=== PATIENT | female | born 1985 | race Two or more races ===

== ENCOUNTER 2024-10-12 10:49 | Outpatient (REF) | payer MEDICAID, SELFPAY ==
--- OUTSIDE RECORDS SUMMARY | 2024-10-12 11:41 | XMS_ITS | Clinical Summary ---
Author Organization [employer] Address [address] [address] [facility] [place] [address] Care Team Providers Care Calcine Furnace Tender Name Role Phone Latricia Gonzales MD Primary Care Provider [phone] Allergies No known active allergies Medications amoxicillin (Amoxil) 875 MG tablet Take 1 tablet (875 mg) by mouth 2 times daily for 7 days. 14 tablet 10/12/2024 5 Active Active Problems No known active problems Encounters Date Type Department Care Team Description 10/12/2024 9:45 AM EDT Office Visit [facility] [address] [place] [phone] Latricia Gonzales MD Other fatigue (Primary Dx) 10/12/2024 Travel 10/08/[address] [facility] [address] [place] [phone] Latricia Gonzales MD chart prep 09/30/[address] [facility] [address] [place] [phone] Latricia Gonzales MD Pre-visit Planning (SDOH screening negative and tobacco screening negative) from Last 3 Months Social History Tobacco Use Types Packs/Day Years Used Date Smoking Tobacco: Never Smokeless Tobacco: Never Tobacco Cessation:Counseling Given: Not Answered Alcohol Use Standard Drinks/Week Comments Never 0 (1 standard drink = 0.6 oz pur e alcohol) Housing Stability Answer Date Recorded What is your housing situation today? I have kory licona 09/30/[address] you li ve. Do you have problems with any of the following? None of the above 09/30/2024 Food Insecurity Answer Date Recorded Within the past 12 months, y ou worried that your food would run out before you got money to buy more: Never True 09/30/2024 Within the past 12 months,th e food you bought just didn't last and you didn't have enough money to get more: Never True Transportation Answer Date Recorded In the past 12 months, has l ack of transportation kept you from medical appts, meetings, work or from getting things needed for daily living? No 09/30/2024 Utilities Answer Date Recorded In the past 12 months, has t he electric, gas, oil or water [employer] threatened to shut off services in your home? No 09/30/2024 Internet Access Answer Date Recorded Internet Access Q1 Yes 09/30/2024 Internet Access Q2 Not on file 09/30/2024 Comments No Intention Date Recorded No desire to become (finding) 0 10/12/2024 Sex and Gender Information Value Date Recorded Sex Assigned at Female 12/30/2023 9:44 AM EDT Legal Sex Female 9:42 AM EDT Gender Identity Female 12/30/2023 9:44 AM EDT Sexual Orientation Straight 12/30/2023 9: 44 AM EDT Last Filed Vital Signs Vital Sign Reading Time Taken Comments Blood Pressure 118/74 10/12/2024 10:09 AM EDT Pulse 72 10/12/2024 10:09 AM EDT Temperature 36.2 ??C (97.1 ??F) 10/12/2024 10:09 AM E DT Respiratory Rate 12 10/12/2024 10:09 AM EDT Oxygen Saturation - - Inhaled Oxygen Concentration - - Weight 52.4 kg (115 lb 8 oz) 10/12/2024 10:09 AM EDT Height 150 cm (4' 11.06 ) 10/12/2024 10:09 AM ED T Body Mass Index 23.28 10/12/2024 10:09 AM EDT Plan of Treatment Upcoming Encounters Date Type Department Care Team (Late st Contact Info) Description 01/11/2025 11:30 AM EDT Procedure Visit [facility] [address] [place] [address] Latricia Gonzales MD [address] [place] [address] Health Maintenance Due Date Last Done Comments Depression Screening 1984 HIV Screening 1984 Disability Screening 1984 Alcohol/Substance Use Screening 1996 Hepatitis C Screening 2002 DTaP/Tdap/Td Vaccines (1 - Tdap) 12/30/2003 Hepatitis B Vaccines (1 of 3 - 19+ 3-dose series) 12/30/2003 Pap Smear 2005 Cervical Cancer Screening 2014 HPV/Cotest 2014 COVID-19 Vaccine (1 - 2023-2 5 season) 2024 Influenza Vaccine (#1) 2024 SDOH Screening 09/30/2025 09/30/2024 Family Planning (PISQ) 10/12/2025 10/12/2024 Tobacco Screening 10/12/2025 10/12/2024 Zoster Vaccines (1 of 2) 2034 RSV Patients and Pa tients Aged 60 years or older (1 - 1-dose 75+ series) 12/30/2059 HIB Vaccines Aged Out No longer eligi ble based on patient's age to complete this topic HPV Vaccines Aged Out No longer eligi ble based on patient's age to complete this topic Hepatitis A Vaccines Aged Out No long er eligible based on patient's age to complete this topic IPV Vaccines Aged Out No longer eligi ble based on patient's age to complete this topic Meningococcal B Vaccine Aged Out No l onger eligible based on patient's age to complete this topic Meningococcal Vaccine Aged Out No mati nancy eligible based on patient's age to complete this topic Pneumococcal Vaccine: Pediat rics (0 to 5 Years) and At-Risk Patients (6 to 49) Years) Aged Out No longer elig ible based on patient's age to complete this topic RSV under 20 months Aged Out No longe r eligible based on patient's age to complete this topic Rotavirus Vaccines Aged Out No longer eligible based on patient's age to complete this topic Insurance [place] DENTAL - HSN FULL (MEDICAID) Care Teams Calcine Furnace Tender Relationship Specialty Start Date End Date Latricia Gonzales MD [address] [place] [phone] PCP - General Family Medicine 10/12/24
[2024-10-12 13:25] LABS: MANUAL DIFF FLAG NO
[2024-10-12 13:37] LABS: Basophils Percent Auto 0.6 % (0-2); Eosinophils Absolute Auto 0.1 X10*3/uL (0.0-0.4); Eosinophils Percent Auto 1.1 % (0-4); Hematocrit 26.6 % (37.0-47.0); Hemoglobin 7.4 g/dl (12.0-16.0); Imm Gran Abs Auto 0.02 X10*3/uL (0.00-0.03); Imm Gran Pct Auto 0.4 % (0.0-0.4); Mean Corpuscular HGB Conc 27.8 g/dl (31.0-35.0); Mean Corpuscular Hemoglobin 18.5 pg (27.0-33.0); Mean Corpuscular Volume 66.3 fL (80.0-98.0); Mean Platelet Volume 9.1 fL (9.4-12.3); Monocytes Absolute Auto 0.3 X10*3/uL (0.1-1.2); Monocytes Percent Auto 6.5 % (2-11); Neutrophils Absolute Auto 2.9 x10*3/uL (2.0-8.3); Neutrophils Percent Auto 54.4 % (45-73); Platelet Count 400 X10*3/uL (160-400); Red Blood Count 4.01 X10*6/uL (4.20-5.50); Red Cell Distribution Width 18.4 % (11.0-16.0); White Blood Count 5.3 X10*3/uL (4.8-10.8)
[2024-10-12 13:42] LABS: Estimated Average Glucose 120 mg/dL; Hemoglobin A1c % 5.8 % (<6.0)
[2024-10-12 13:48] LABS: Alanine Aminotransferase 18 U/L (0-31); Albumin Level 4.6 g/dL (3.5-5.0); Alkaline Phosphatase 90 U/L (39-117); Anion Gap 11 (12-20); Aspartate Amino Transferase 26 U/L (5-31); Bilirubin Total 0.6 mg/dL (0.0-1.0); Blood Urea Nitrogen 11 mg/dL (9-16); Calcium 9.1 mg/dL (8.4-10.2); Carbon Dioxide 24 mmol/L (22-29); Chloride 107 mmol/L (96-108); Estimated Glomerular Filt Rate > 60; Glucose Random 92 mg/dL (60-115); Potassium 4.1 mmol/L (3.3-5.1); Sodium 138 mmol/L (135-145)
[2024-10-12 14:11] LABS: TSH reflex Free T4 1.86 uIU/mL (0.32-4.0)
== END 2024-10-12 10:50 | disposition home or self-care (01) ==
LOC: HO.HHCL 10:49
PROVIDERS: Visit Provider General Practice
DX: R53.83 Other fatigue (principal)
CPT/HCPCS: 36415; 80053; 83036; 84443; 85025

== ENCOUNTER 2024-11-16 10:47 | Outpatient (REF) | payer MEDICAID, SELFPAY ==
--- OUTSIDE RECORDS SUMMARY | 2024-11-16 12:01 | XMS_ITS | Clinical Summary ---
Author Organization [employer] Address [address] [place] [address] Care Team Providers Care Logistics/Shipper Name Role Phone Latricia Gonzales MD Primary Care Provider [phone] Allergies No known active allergies Medications ferrous gluconate (Fergon) 324 (38 Fe) MG tabletIndication s:Iron deficiency anemia secondary to inadequate dietary iron intake Take 1 tablet (324 mg) by mouth with breakfast. 90 tablet 3 5 Active polyethylene glycol, PEG, 3350 (MiraLax) 17 GM/SCOOP powderIndication s:Iron deficiency anemia secondary to inadequate dietary iron intake Take 17 g by mouth Once per day. 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 10/12/2024 Results Follow-Up [facility] [address] [place], [place] [phone] Latricia Gonzales MD CBC auto differential, Comprehensive Metabolic Panel, TSH W/Reflex to FT4, Hemoglobin A1c 10/12/2024 Travel 10/08/2024 Telephone [facility] [address] [place], [place] [phone] Latricia Gonzales MD chart prep 09/30/2024 Patient Outreach [facility] [address] [place] [address] Latricia Gonzales MD Pre-visit Planning (SDOH screening negative and tobacco screening negative) from Last 3 Months Social History Tobacco Use Types Packs/Day Years Used Date Smoking Tobacco: Never Smokeless Tobacco: Never Tobacco Cessation:Counseling Given: Not Answered Alcohol Use Standard Drinks/Week Comments Never 0 (1 standard drink = 0.6 oz pur e alcohol) Alcohol Answer Date Recorded How often do you have a drink containing alcohol ? 0 10/12/2024 How many drinks containing a lcohol do you have on a typical day when you are drinking? 0 10/12/2024 How often do you have six or more drinks on one occasion? 0 10/12/2024 Depression Answer Date Recorded Patient Health Questionnaire-9 Score 2 10/12/2024 Patient Health Questionnaire-9 Score 2 10/12/2024 Last PHQ-9: Questionnaire Data Not on file 0 10/12/2024 Housing Stability Answer Date Recorded What is [...] t he electric, gas, oil or water company threatened to shut off services in your home? No 09/30/2024 Depression Answer Date Recorded Patient Health Questionnaire-2 Score 0 10/12/2024 Internet Access Answer Date Recorded Internet Access [...] 72 10/12/2024 10:09 AM EDT Temperature 36.2 C (97.1 F) 10/12/2024 10:09 AM EDT Respiratory Rate 12 10/12/2024 10:09 AM EDT Oxygen Saturation - - Inhaled Oxygen Concentration - - Weight 52.4 kg (115 lb 8 oz) 10/12/2024 10:09 AM EDT Height 150 cm (4' 11.06 ) 10/12/2024 10:09 AM ED T Body Mass Index 23.28 10/12/2024 10:09 AM EDT Plan of Treatment Upcoming Encounters Date Type Department Care Team (Late st Contact Info) Description 11/23/2024 9:30 AM EDT Office Visit [facility] [address] [place] [address] 01/11/2025 11:30 AM EDT Procedure Visit [facility] [address] [place] [address] Latricia Gonzales MD [address] [place] [address] Health Maintenance Due Date Last Done Comments Dental Oral Exam 1984 Dental Prophylaxis 1984 Dental X-Ray: Bitewings 1984 Dental X-Ray: Full Mouth 1984 HIV Screening 1984 Disability Screening 1984 Hepatitis C Screening 2002 DTaP/Tdap/Td Vaccines (1 - Tdap) 12/30/2003 Hepatitis B Vaccines (1 of 3 - 19+ 3-dose series) 12/30/2003 Pap Smear 2005 Cervical Cancer Screening 2014 HPV/Cotest 2014 COVID-19 Vaccine ( - 2023-2 5 season) 2024 Influenza Vaccine (#1) 2025 SDOH Screening 09/30/2025 09/30/2024 Alcohol/Substance Use Screening 10/12/2025 10/12/2024 Depression Screening 10/12/2025 10/12/2024, 10/12/2024 Diabetes: Hemoglobin A1C 10/12/2025 10/12/2024 Family Planning (PISQ) 10/12/2025 10/12/2024 Tobacco Screening 10/12/2025 10/12/2024 Zoster Vaccines (1 of 2) 2034 RSV Patients and Patients Aged 60 years or older (1 - [...] age to complete this topic Pneumococcal Vaccine: Pediatrics (0 to 5 Years) and At-Risk Patients (6 to 49) Years Aged Out No longer eligible b ased on patient's age to complete this topic RSV under 20 months Aged Out No longe r eligible based on patient's age to complete this topic Rotavirus Vaccines Aged Out No longer eligible based on patient's age to complete this topic Procedures Procedure Name Priority Date/Time Associated Diagnosis Comments HEMOGLOBIN A1C Routine 10/12/2024 10:54 AM EDT Other fatigue TSH W/REFLEX TO FT4 Routine 10/12/2024 1 0:54 AM EDT Other fatigue COMPREHENSIVE METABOLIC PANEL Routine 10/12/2024 10:54 AM EDT Other fatigue CBC WITH AUTO DIFFERENTIAL Routine 10/12/2024 10:54 AM EDT Other fatigue from Last 3 Months Results * TSH W/Reflex to FT4 (10/12/2024 10:54 AM EDT) TSH reflex Free T4 1.86 0.32 - 4.0 uIU/mL [facility] Blood Venous blood specimen / Unknown 10/12/2024 10:54 AM EDT 10/12/2024 1:22 PM EDT us Latricia Gonzales MD LAB BLOOD ORDERABLES Final Res ult [facility] [address] [place] [phone] * (ABNORMAL) CBC auto differential (10/12/2024 10:54 AM EDT) Pathologist [facility] White Blood Count 5.3 4.8 - 10.8 X10*3/uL [facility] Red Blood Count 4.01(L) 4.20 - 5.50 X10*6/uL [facility] Hemoglobin 7.4(L) 12.0 - 16.0 g/dl [facility] Hematocrit 26.6(L) 37.0 - 47.0 % [facility] Mean Corpuscular Volume 66.3(L) 80.0 - 98.0 fL [facility] Mean Corpuscular Hemoglobin 18.5(L) 27.0 - 33.0 pg [facility] Mean Corpuscular HGB Conc 27.8(L) 31.0 - 35.0 g/dl [facility] Red Cell Distribution Width 18.4(H) 11.0 - 16.0 % [facility] Platelet Count 400 160 - 400 X10*3/uL [facility] Mean Platelet Volume 9.1(L) 9.4 - 12.3 fL [facility] Neutrophils Percent Auto 54.4 45 - 73 % [facility] Imm Gran Pct Auto 0.4 0.0 - 0.4 % [facility] Lymphocytes Percent Auto 37.0 20 - 40 % [facility] Monocytes Percent Auto 6.5 2 - 11 % [facility] Eosinophils Percent Auto 1.1 0 - 4 % [facility] Basophils Percent Auto 0.6 0 - 2 % [facility] NRBC Pct Auto 0.0 0.0 - 0.2 /100WBC [facility] Neutrophils Absolute Auto 2.9 2.0 - 8.3 x10*3/uL [facility] Imm Gran Abs Auto 0.02 0.00 - 0.03 X10*3/uL [facility] Lymphocytes Absolute Auto 2.0 1.2 - 4.9 X10*3/uL [facility] Monocytes Absolute Auto 0.3 0.1 - 1.2 X10*3/uL [facility] Eosinophils Absolute Auto 0.1 0.0 - 0.4 X10*3/uL [facility] Basophils Absolute Auto 0.0 0.0 - 0.2 X10*3/uL [facility] NRBC Abs Auto 0.000 0.0 - 0.012 X10*3/uL [facility] Blood Venous blood specimen / Unknown 10/12/2024 10:54 AM EDT 10/12/2024 1:22 PM EDT us Latricia Gonzales MD LAB BLOOD ORDERABLES Final Res ult [facility] [address] [place] [phone] * Hemoglobin A1c (10/12/2024 10:54 AM EDT) Hemoglobin A1c 5.8 <6.0 % [facility] Comment:Hemoglobin A1C Refer ence Range Adults: 4.8 - 6.0 % Non diabetic: < 6.0 % Goal: < 7.0 %Additional Action Suggested: > 8.0 %Note: Hemoglobin A1c results are invalid for patients with abnormal amounts of HbF. Blood transfusions may impact the HbA1c concentration in the patient sample. Estimated Average Glucose 120 mg/dL [facility] Comment:eAG = Estimated ave rage glucose which is %A1C expressed asaverage glucose, using the formula of the [id number] Glucose study (ADAG), Diabetes Care, Vol.31,#8,Dec. 2007 Blood Venous blood specimen / Unknown 10/12/2024 10:54 AM EDT 10/12/2024 1:22 PM EDT us Latricia Gonzales MD LAB BLOOD ORDERABLES Final Res ult [facility] [address] [place], [place] [phone] * (ABNORMAL) Comprehensive Metabolic Panel (10/12/2024 10:54 AM EDT) Sodium 138 135 - 145 mmol/L [facility] Potassium 4.1 3.3 - 5.1 mmol/L [facility] Chloride 107 96 - 108 mmol/L [facility] Carbon Dioxide 24 22 - 29 mmol/L [facility] Anion Gap 11(L) 12 - 20 [facility] Urea Nitrogen (BUN) 11 9 - 16 mg/dL [facility] Creatinine, Serum 0.49(L) 0.5 - 1.4 mg/dL [facility] Estimated Glomerular Filt Rate >60 [facility] Comment:Chronic Kidney Disea se: Estimated GFR < 60 mL/min/1.20p0[place] Kidney Disease: Estimated GFR < 15 mL/min/1.73m2 Glucose 92 60 - 115 mg/dL [facility] Calcium 9.1 8.4 - 10.2 mg/dL [facility] Bilirubin, Total 0.6 0.0 - 1.0 mg/dL [facility] Aspartate Amino Transferase 26 5 - 31 U/L [facility] Alanine Aminotransferase 18 0 - 31 U/L [facility] Total Protein 8.0 6.5 - 8.0 g/dL [facility] Albumin Level 4.6 3.5 - 5.0 g/dL [facility] Alkaline Phosphatase 90 39 - 117 U/L [facility] Blood Venous blood specimen / Unknown 10/12/2024 10:54 AM EDT 10/12/2024 1:22 PM EDT us Latricia Gonzales MD LAB BLOOD ORDERABLES Final Res ult [facility] [address] [place] [phone] [phone] from Last 3 Months Insurance [facility]SN FULL [facility] - HSN FULL (MEDICAID) DENTAL-[place] ADULT Care Teams Logistics/Shipper Relationship Specialty Start Date End Date Latricia Gonzales MD [address] [place] [phone] PCP - General Family Medicine 10/12/24
[2024-11-16 13:03] LABS: MANUAL DIFF FLAG NO
[2024-11-16 13:12] LABS: Hematocrit 25.6 % (37.0-47.0); Hemoglobin 7.1 g/dl (12.0-16.0); Imm Gran Abs Auto 0.01 X10*3/uL (0.00-0.03); Imm Gran Pct Auto 0.2 % (0.0-0.4); Lymphocytes Absolute Auto 2.2 X10*3/uL (1.2-4.9); Mean Corpuscular HGB Conc 27.7 g/dl (31.0-35.0); Mean Corpuscular Hemoglobin 19.0 pg (27.0-33.0); Mean Corpuscular Volume 68.4 fL (80.0-98.0); NRBC Abs Auto 0.000 X10*3/uL (0.0-0.012); NRBC Pct Auto 0.0 /100WBC (0.0-0.2); Platelet Count 467 X10*3/uL (160-400); Red Blood Count 3.74 X10*6/uL (4.20-5.50); White Blood Count 5.0 X10*3/uL (4.8-10.8)
== END 2024-11-16 10:48 | disposition home or self-care (01) ==
LOC: HO.HHCL 10:47
PROVIDERS: PCP General Practice; Visit Provider General Practice
DX: D50.8 Other iron deficiency anemias (principal)
CPT/HCPCS: 36415; 85025

== ENCOUNTER 2024-12-24 08:12 | Outpatient (REF) | payer MEDICAID, SELFPAY ==
--- OUTSIDE RECORDS SUMMARY | 2024-12-24 08:22 | XMS_ITS | Encounter Summary ---
Author Organization [employer] Address [address] [place] [address] Care Team Providers Care Assistant Women'S Soccer Coach Name Role Phone Latricia Gonzales MD Primary Care Provider [phone] Encounter Details Date Type Department Care Team ([facility] st Contact Info) Description 12/15/2024 Orders Only [facility] [address] [place], [place] [phone] Latricia Gonzales MD [address] [place], [place] [phone] Iron deficiency anemia secondary to inadequate dietary iron intake (Primary Dx) Social History Tobacco Use Types Packs/Day Years Used Date Smoking Tobacco: Never Smokeless Tobacco: Never Alcohol Use Standard Drinks/Week Comments Never 0 [...] Q2 Not on file 09/30/2024 Comments No Sex and Gender Information Value Date Recorded Sex Assigned at Female 12/30/2023 9:44 AM EDT Legal Sex Female 9:42 AM EDT Gender Identity Female 12/30/2023 9:44 AM EDT Sexual Orientation Straight 12/30/2023 9: 44 AM EDT documented as of this encounter Plan of Treatment Upcoming Encounters Date Type Department Care Team (Late st Contact Info) Description 01/11/2025 11:30 AM EDT Procedure Visit [facility] [address] [place] [phone] Latricia Gonzales MD [address] [place] [phone] Scheduled Orders Name Type Priority Associated Diagnoses Orde r Schedule CBC auto differential Lab Routine Iron deficiency anemia secondary to inadequate dietary iron intake Expected: 12/15/2024 (Approximate), Expires: 12/15/2025 documented as of this encounter Visit Diagnoses Diagnosis Iron deficiency anemia secondary to inadequate dietary iron intake- Primary documented in this encounter Additional Health Concerns Assessment Noted Time PHQ-9 Depression Total Score: 2 10/13/19 2:23 PM EDT documented as of this encounter Care Teams Assistant Women'S Soccer Coach Relationship Specialty Start Date End Date Latricia Gonzales MD [address] [place] [phone] PCP - General Family Medicine 10/12/24 documented as of this encounter
[2024-12-24 11:43] LABS: MANUAL DIFF FLAG NO
[2024-12-24 11:52] LABS: Hematocrit 28.2 % (37.0-47.0); Hemoglobin 7.7 g/dl (12.0-16.0); Imm Gran Abs Auto 0.01 X10*3/uL (0.00-0.03); Imm Gran Pct Auto 0.2 % (0.0-0.4); Lymphocytes Absolute Auto 1.7 X10*3/uL (1.2-4.9); Mean Corpuscular HGB Conc 27.3 g/dl (31.0-35.0); Mean Corpuscular Hemoglobin 19.1 pg (27.0-33.0); Mean Corpuscular Volume 70.0 fL (80.0-98.0); NRBC Abs Auto 0.000 X10*3/uL (0.0-0.012); NRBC Pct Auto 0.0 /100WBC (0.0-0.2); Platelet Count 399 X10*3/uL (160-400); Red Blood Count 4.03 X10*6/uL (4.20-5.50); White Blood Count 5.3 X10*3/uL (4.8-10.8)
== END 2024-12-24 08:13 | disposition home or self-care (01) ==
LOC: HO.HHCL 08:12
PROVIDERS: PCP General Practice; Visit Provider General Practice
DX: D50.8 Other iron deficiency anemias (principal)
CPT/HCPCS: 36415; 85025

== ENCOUNTER 2025-01-11 10:27 | Outpatient (REF) | payer MEDICAID, SELFPAY ==
--- NOTE | ~2025-01-11 | XR_ITS ---
EXAMINATION: XR SHOULDER, RIGHT CLINICAL INFORMATION: Right soulder pain with overhead motion at joint COMPARISON: None available. TECHNIQUE: AP external rotation, Grashey, scapular Y, and axillary views of the right shoulder. FINDINGS: The bones and soft tissues are normal. No fracture. Glenohumeral and acromioclavicular alignment is anatomic with normal joint space. No abnormal soft tissue calcifications. XR/XR shoulder RT min 2V IMPRESSION: Unremarkable right shoulder. Electronically signed by: Rian Barnett MD 01/11/2025 10:55 AM EDT
--- OUTSIDE RECORDS SUMMARY | 2025-01-11 11:12 | XMS_ITS | Clinical Summary ---
Author Organization [employer] Address [address] [place] [address] Care Team Providers Care Tax Services Manager Name Role Phone Latricia Gonzales MD Primary Care Provider [phone] Allergies Active Allergy Reactions Criticality Noted Date Comments Cephalexin 11/23/2024 Medications polyethylene glycol, PEG, 3350 (MiraLax) 17 GM/SCOOP powderIndicat ions:Iron deficiency anemia secondary to inadequate dietary iron intake Take 17 g by mouth Once per day. Take if become constipated from iron 527 g 2 10/13/19 25 026 Active hydrocortison e 1 % cream Apply topically 2 times daily. 56 g 01/12/20 25 Active ferrous gluconate (Fergon) 324 (38 Fe) MG tabletIndicat ions:Iron deficiency anemia secondary to inadequate dietary iron intake Take 1 tablet (324 mg) by mouth with breakfast. 90 tablet 3 01/12/20 25 Active ferrous gluconate (Fergon) 324 (38 Fe) MG tabletIndicat ions:Iron deficiency anemia secondary to inadequate dietary iron intake Take 1 tablet (324 mg) by mouth with breakfast. 90 tablet 3 10/13/19 25 025 Discontinued(Re order (will not trigger notification to Pharmacy)) Active Problems Problem Noted Date Diagnosed Date Acute pain of right shoulder 01/11/2025 Screening for cervical cancer 01/11/2025 Iron deficiency anemia 10/12/2024 Encounters Date Type Department Care Team Description 01/11/2025 11:30 AM EDT Procedure Visit [facility] [address] [place], [place] [phone] Latricia Gonzales MD Screening for cervical cancer (Primary Dx); Acute pain of right shoulder; Iron deficiency anemia secondary to inadequate dietary iron intake 01/11/2025 Travel 01/10/[address] [address] Latricia Gonzales MD chart prep 12/26/2024 Results Follow-Up [facility] [address] [place] [phone] Latricia Gonzales MD CBC auto differential 12/15/2024 Orders Only [address] [address] Latricia Gonzales MD Iron deficiency anemia secondary to inadequate dietary iron intake (Primary Dx) 12/14/2024 2:30 PM EDT Office Visit [facility] [address] [place] [address] Wilbur Karen Missing teeth, acquired (Primary Dx) 12/07/2024 Telephone [facility] [address] [place] [phone] Yen Bu Student case 12/03/2024 1:00 PM EDT Office Visit [facility] [address] [place] [address] Wilbur Karen Missing teeth, acquired (Primary Dx) 11/26/2024 10:30 AM EDT Office Visit [facility] [address] [place] [address] Wilbur Karen Excessive attrition of teeth (Primary Dx) 11/25/2024 Travel 11/23/2024 9:30 AM EDT Office Visit [facility] [address] [place] [address] Wilbur Karen Excessive attrition of teeth (Primary Dx); Dental caries; Dental plaque; Gingival bleeding; Missing teeth, acquired; Dental calculus 10/12/2024 9:45 AM EDT Office Visit [address] [address] Latricia Gonzales MD Other fatigue (Primary Dx); Iron deficiency anemia secondary to inadequate dietary iron intake; 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 10/12/2024 Results Follow-Up [address] [place] [address] Latricia Gonzales MD CBC auto differential, Comprehensive Metabolic Panel, TSH W/Reflex to FT4, Additional followed-up results: 2 10/12/2024 Travel from Last 3 Months Social History Tobacco [...] Answer Date Recorded Patient Health Questionnaire-9 Score 5 01/11/2025 Patient Health Questionnaire-9 Score 5 01/11/2025 Last PHQ-9: Questionnaire Data Not on file 0 01/11/2025 Housing Stability Answer Date Recorded What is [...] Answer Date Recorded Patient Health Questionnaire-2 Score 2 01/11/2025 Internet Access Answer Date Recorded Internet Access Q1 Yes 09/30/2024 Internet Access Q2 Not on file 09/30/2024 Comments No Intention Date Recorded No desire to become (finding) 0 01/11/2025 Sex and Gender Information Value Date Recorded Sex Assigned at Female 12/30/2023 9:44 AM EDT Legal Sex Female 9:42 AM EDT Gender Identity Female 12/30/2023 9:44 AM EDT Sexual Orientation Straight 12/30/2023 9: 44 AM EDT Last Filed Vital Signs Vital Sign Reading Time Taken Comments Blood Pressure 100/60 01/11/2025 9:53 AM EDT Pulse 100 01/11/2025 9:53 AM EDT Temperature 36.2 C (97.1 F) 01/11/2025 9:53 AM EDT Respiratory Rate 20 01/11/2025 9:53 AM EDT Oxygen Saturation - - Inhaled Oxygen Concentration - - Weight 52.5 kg (115 lb 12.8 oz) 01/11/2025 9:53 AM EDT Height 149.9 cm (4' 11 ) 01/11/2025 9:53 AM EDT Body Mass Index 23.39 01/11/2025 9:53 AM EDT Plan of Treatment Upcoming Encounters Date Type Department Care Team (Latest Contact Info) Description 01/11/2025 11:30 AM EDT Procedure Visit [facility] [address] [place] [address] Latricia Gonzales MD [address] [place] [address] Screening for cervical cancer (Primary Dx); Acute pain of right shoulder; Iron deficiency anemia secondary to inadequate dietary iron intake Health Maintenance Due Date Last Done Comments HIV Screening 1984 HPV Vaccines (1 - 3-dose series) 12/30/1999 Hepatitis C Screening 2002 DTaP/Tdap/Td Vaccines (1 - Tdap) 12/30/2003 Hepatitis B Vaccines (1 of 3 - 19+ 3-dose series) 12/30/2003 Pap Smear 2005 Cervical Cancer Screening 2014 HPV/Cotest 2014 COVID-19 Vaccine (1 - 2023-2 5 season) 2024 Mammogram 2024 Influenza Vaccine (#1) 2025 Dental Oral Exam 05/27/2025 11/23/2024 Dental Prophylaxis 05/27/2025 11/23/2024 SDOH Screening 09/30/2025 09/30/2024 Alcohol/Substance Use Screening 10/12/2025 10/12/2024 Diabetes: Hemoglobin A1C 10/12/2025 10/12/2024 Family Planning (PISQ) 10/12/2025 10/12/2024 Dental X-Ray: Bitewings 11/24/2025 11/23/2024 Depression Screening 01/11/2026 01/11/2025, 01/11/2025 Disability Screening 01/11/2026 01/11/2025 Tobacco Screening 01/11/2026 01/11/2025 Dental X-Ray: Full Mouth 11/25/2027 11/23/2024 Zoster Vaccines (1 of 2) 2034 RSV [...] Procedure Name Priority Date/Time Associated Diagnosis Comments XR SHOULDER 2+ VIEWS RIGHT Routine 01/11/2025 10:02 AM EDT Acute pain of right shoulder CBC WITH AUTO DIFFERENTIAL Routine 12/24/2024 8:20 AM EDT Iron deficiency anemia secondary to inadequate dietary iron intake CASE PRESENTATION, DETAILED AND EXTENSIVE TREATMENT PLANNING Routine 12/14/2024 2:30 PM EDT 5,12 MAXILLARY PARTIAL DENTURE - RESIN BASE (INCLUDING, RETENTIVE/CLASPING MATERIALS, RESTS, AND TEETH) Routine 12/14/2024 2:30 PM EDT Missing teeth, acquired CASE PRESENTATION, DETAILED AND EXTENSIVE TREATMENT PLANNING Routine 12/03/2024 1:00 PM EDT DENTURE IMPRESSION Routine 12/03/2024 1: 00 PM EDT CASE PRESENTATION, DETAILED AND EXTENSIVE TREATMENT PLANNING Routine 11/26/2024 10:30 AM EDT 13 D RESIN-BASED COMPOSITE - 1 SURF, POSTERIOR Routine 11/26/2024 10:30 AM EDT Excessive attrition of teeth 14 M RESIN-BASED COMPOSITE - 1 SURF, POSTERIOR Routine 11/26/2024 10:30 AM EDT CASE PRESENTATION, DETAILED AND EXTENSIVE TREATMENT PLANNING Routine 11/23/2024 9:30 AM EDT ORAL HYGIENE INSTRUCTIONS Routine 11/23/2024 9:30 AM EDT INTRAORAL - COMPLETE SERIES OF RADIOGRAPHIC IMAGES Routine 11/23/2024 9:30 AM EDT PROPHYLAXIS - ADULT Routine 11/23/2024 9 :30 AM EDT COMPREHENSIVE ORAL EVALUATION - NEW OR ESTABLISHED PATIENT Routine 11/23/2024 9:30 AM EDT Excessive attrition of teeth Dental caries Dental plaque Gingival bleeding Missing teeth, acquired Dental calculus 3 O COMPOSITE FILLING Routine 11/23/2024 12:00 AM EDT 2 O COMPOSITE FILLING Routine 11/23/2024 12:00 AM EDT 15 O COMPOSITE FILLING Routine 12:00 AM EDT 18 O COMPOSITE FILLING Routine 12:00 AM EDT 19 O COMPOSITE FILLING Routine 12:00 AM EDT 31 O COMPOSITE FILLING Routine 12:00 AM EDT 30 O AMALGAM FILLING Routine 11/23/2024 12:00 AM EDT CBC WITH AUTO DIFFERENTIAL Routine 11/16/2024 11:02 AM EDT Iron deficiency anemia secondary to inadequate dietary iron intake HEMOGLOBIN A1C Routine 10/12/2024 10:54 AM EDT Other fatigue TSH W/REFLEX TO FT4 Routine 10/12/2024 1 0:54 AM EDT Other fatigue COMPREHENSIVE METABOLIC PANEL Routine 10/12/2024 10:54 AM EDT Other fatigue CBC WITH AUTO DIFFERENTIAL Routine 10/12/2024 10:54 AM EDT Other fatigue from Last 3 Months Results * XR Shoulder 2+ Views Right (01/11/2025 10:02 AM EDT) Anatomical Region Laterality Modality Upper Extremities, Shoulder Right Radi ographic Imaging 01/11/2025 10:0 2 AM EDT Narrative 01/11/2025 10:57 AM EDT [address] [address] XRay Report Signed Patient: Sapna Hickey MR#: [id number] : 1985 Acct:[id number] Age/Sex: 39 / F ADM Date: 01/11/25 Loc: HO.HHCX Attending Dr: Latricia Gonzales MD Ordering Physician: Latricia Gonzales Date of Service: 01/11/25 Procedure(s): XR shoulder RT min 2V Accession Number(s): [id number] cc: Latricia Gonzales EXAMINATION: XR SHOULDER, RIGHT CLINICAL INFORMATION: Right soulder pain with overhead motion at GH joint COMPARISON: None available. TECHNIQUE: AP external rotation, Grashey, scapular Y, and axillary views of the right shoulder. FINDINGS: The bones and soft tissues are normal. No fracture. Glenohumeral and acromioclavicular alignment is anatomic with normal joint space. No abnormal soft tissue calcifications. XR/XR shoulder RT min 2V IMPRESSION: Unremarkable right shoulder. Electronically signed by: Rian Barnett MD 01/11/2025 10:55 AM EDT Dictated By: Rian Barnett MD Signed By: <Electronically signed by Rian Barnett MD in OV> 01/11/25 1055 DD/ 1002 TD/TT: 01/11/25 1050 [employer] Supervisor: Procedure Note Donotuseinterpreter, Image - 01/11/[address] [address] XRay Report Signed Patient: Sapna HickeyMR#: [id number] : 1985Acct:[id number] Age/Sex: 39 / FADM Date: 01/11/25 Loc: HO.HHCX Attending Dr: Latricia Gonzales MD Ordering Physician: Latricia Gonzales Date of Service: 01/11/25 Procedure(s): XR shoulder RT min 2V Accession Number(s): [id number] cc: Latricia Gonzales EXAMINATION: XR SHOULDER, RIGHT CLINICAL INFORMATION: Right soulder pain with overhead motion at GH joint COMPARISON: None available. TECHNIQUE: AP external rotation, Grashey, scapular Y, and axillary views of the right shoulder. FINDINGS: The bones and soft tissues are normal. No fracture. Glenohumeral and acromioclavicular alignment is anatomic with normal joint space. No abnormal soft tissue calcifications. XR/XR shoulder RT min 2V IMPRESSION: Unremarkable right shoulder. Electronically signed by: Rian Barnett MD 01/11/2025 10:55 AM EDT Dictated By: Rian Barnett MD Signed By: <Electronically signed by Rian Barnett MD in OV> 01/11/25 1055 DD/ 1002 TD/TT: 01/11/25 [address] [employer] Supervisor: Latricia Gonzales MD IMG XR PROCEDURES Final Result * (ABNORMAL) CBC auto differential (12/24/2024 8:20 AM EDT) Only the most recent of3 resultswithin the time period is included. White Blood Count 5.3 4.8 - 10.8 X10*3/uL [facility] Red Blood Count 4.03(L) 4.20 - 5.50 X10*6/uL [facility] Hemoglobin 7.7(L) 12.0 - 16.0 g/dl [facility] Hematocrit 28.2(L) 37.0 - 47.0 % [facility] Mean Corpuscular Volume 70.0(L) 80.0 - 98.0 fL [facility] Mean Corpuscular Hemoglobin 19.1(L) 27.0 - 33.0 pg [facility] Mean Corpuscular HGB Conc 27.3(L) 31.0 - 35.0 g/dl [facility] Red Cell Distribution Width 19.3(H) 11.0 - 16.0 % [facility] Platelet Count 399 160 - 400 X10*3/uL [facility] Mean Platelet Volume 9.3(L) 9.4 - 12.3 fL [facility] Neutrophils Percent Auto 57.8 45 - 73 % [facility] Imm Gran Pct Auto 0.2 0.0 - 0.4 % [facility] Lymphocytes Percent Auto 31.9 20 - 40 % [facility] Monocytes Percent Auto 7.8 2 - 11 % [facility] Eosinophils Percent Auto 1.7 0 - 4 % [facility] Basophils Percent Auto 0.6 0 - 2 % [facility] NRBC Pct Auto 0.0 0.0 - 0.2 /100WBC [facility] Neutrophils Absolute Auto 3.1 2.0 - 8.3 x10*3/uL [facility] Imm Gran Abs Auto 0.01 0.00 - 0.03 X10*3/uL [facility] Lymphocytes Absolute Auto 1.7 1.2 - 4.9 X10*3/uL [facility] Monocytes Absolute Auto 0.4 0.1 - 1.2 X10*3/uL [facility] Eosinophils Absolute Auto 0.1 0.0 - 0.4 X10*3/uL [facility] Basophils Absolute Auto 0.0 0.0 - 0.2 X10*3/uL [facility] NRBC Abs Auto 0.000 0.0 - 0.012 X10*3/uL [facility] Blood Venous blood specimen / Unknown 12/24/2024 8:20 AM EDT 12/24/2024 11:37 AM EDT us Latricia Gonzales MD LAB BLOOD ORDERABLES Final Res ult [facility] [address] [place] [phone] * TSH W/Reflex to FT4 (10/12/2024 10:54 AM EDT) TSH reflex Free T4 1.86 0.32 - 4.0 uIU/mL [facility] Blood Venous blood specimen / Unknown 10/12/2024 10:54 AM EDT 10/12/2024 1:22 PM EDT Latricia Gonzales MD LAB BLOOD ORDERABLES Final Res ult Performing Organization Address [facility] de Phone Number [facility] [address] [place] [phone] * Hemoglobin A1c (10/12/2024 10:54 AM EDT) Hemoglobin A1c 5.8 <6.0 % [facility] Comment:Hemoglobin A1C Refer ence Range Adults: 4.8 - 6.0 % Non diabetic: < 6.0 % Goal: < 7.0 %Additional Action Suggested: > 8.0 %Note: Hemoglobin A1c results are invalid for patients with abnormal amounts of HbF. Blood transfusions may impact the HbA1c concentration in the patient sample. Estimated Average Glucose 120 mg/dL [facility] Comment:eAG = Estimated ave rage glucose which is %A1C expressed asaverage glucose, using the formula of the X5H-OgireimWdmqero Glucose study (ADAG), Diabetes Care, Vol.31,#8,Dec. 2007 Blood Venous blood specimen / Unknown 10/12/2024 10:54 AM EDT 10/12/2024 1:22 PM EDT Latricia Gonzales MD LAB BLOOD ORDERABLES Final Res ult Performing Organization Address [facility] Co de Phone Number [facility] [address] [place] [phone] * (ABNORMAL) Comprehensive Metabolic Panel (10/12/2024 10:54 AM EDT) Sodium 138 135 - 145 mmol/L [facility] Potassium 4.1 3.3 - 5.1 mmol/L [facility] Chloride 107 96 - 108 mmol/L [facility] Carbon Dioxide 24 22 - 29 mmol/L [facility] Anion Gap 11(L) 12 - 20 [facility] Urea Nitrogen (BUN) 11 9 - 16 mg/dL [facility] Creatinine, Serum 0.49(L) 0.5 - 1.4 mg/dL [facility] Estimated Glomerular Filt Rate >60 [facility] Comment:Chronic Kidney Disea se: Estimated GFR < 60 mL/min/1.96h3Hmzmqa Kidney Disease: Estimated GFR < 15 mL/min/1.73m2 Glucose 92 60 - 115 mg/dL [facility] Calcium 9.1 8.4 - 10.2 mg/dL [facility] Bilirubin, Total 0.6 0.0 - 1.0 mg/dL [facility] Aspartate Amino Transferase 26 5 - 31 U/L [facility] Alanine Aminotransferase 18 0 - 31 U/L [facility] Total Protein 8.0 6.5 - 8.0 g/dL [facility] Albumin Level 4.6 3.5 - 5.0 g/dL [facility] Alkaline Phosphatase 90 39 - 117 U/L [facility] Blood Venous blood specimen / Unknown 10/12/2024 10:54 AM EDT 10/12/2024 1:22 PM EDT us Latricia Gonzales MD LAB BLOOD ORDERABLES Final Res ult [facility] [address] [place] [phone] from Last 3 Months Insurance [facility] [place] [place] [facility] [place] [facility] [place] [place]MEDICA[place] AD[place] Care Teams Tax Services Manager Relationship Specialty Start Date End Date Latricia Gonzales MD [address] [place] [phone] PCP - General Family Medicine 10/12/24
--- OUTSIDE RECORDS SUMMARY | 2025-01-11 11:12 | XMS_ITS | Encounter Summary ---
Author Organization [employer] Address [address] [place] [address] Care Team Providers Care Affiliate Marketing Specialist Name Role Phone Latricia Gonzales MD Primary Care Provider [phone] Encounter Details Date Type Department Care Team ([facility] st Contact Info) Description 12/15/[address] [facility] [address] [place], [place] [phone] Latricia Gonzales MD [address] [place], [place] [phone] Iron deficiency anemia secondary to inadequate dietary [...] 01/11/2025 11:30 AM EDT Procedure Visit [facility] [address] [place] [address] Latricia Gonzales MD [address] [place] [address] Screening for cervical cancer (Primary Dx); Acute pain of right shoulder; Iron deficiency anemia secondary to inadequate dietary iron intake documented as of this encounter Procedures Procedure Name Priority Date/Time Associated Diagnosis Comments CBC WITH AUTO DIFFERENTIAL Routine 12/24/2024 8:20 AM EDT Iron deficiency anemia secondary to inadequate dietary iron intake documented in this encounter Results * (ABNORMAL) CBC auto differential (12/24/2024 8:20 AM EDT) White Blood Count 5.3 4.8 - 10.8 X10*3/uL [facility] Red Blood Count 4.03(L) 4.20 - 5.50 X10*6/uL [facility] Hemoglobin 7.7(L) 12.0 - 16.0 g/dl [facility] Hematocrit 28.2(L) 37.0 - 47.0 % [facility] Mean Corpuscular Volume 70.0(L) 80.0 - 98.0 fL [facility] Mean Corpuscular Hemoglobin 19.1(L) 27.0 - 33.0 pg [facility] Mean Corpuscular HGB Conc 27.3(L) 31.0 - 35.0 g/dl [facility] Red Cell Distribution Width 19.3(H) 11.0 - 16.0 % [facility] Platelet Count 399 160 - 400 X10*3/uL [facility] Mean Platelet Volume 9.3(L) 9.4 - 12.3 fL [facility] Neutrophils Percent Auto 57.8 45 - 73 % [facility] Imm Gran Pct Auto 0.2 0.0 - 0.4 % [facility] Lymphocytes Percent Auto 31.9 20 - 40 % [facility] Monocytes Percent Auto 7.8 2 - 11 % [facility] Eosinophils Percent Auto 1.7 0 - 4 % [facility] Basophils Percent Auto 0.6 0 - 2 % [facility] NRBC Pct Auto 0.0 0.0 - 0.2 /100WBC [facility] Neutrophils Absolute Auto 3.1 2.0 - 8.3 x10*3/uL [facility] Imm Gran Abs Auto 0.01 0.00 - 0.03 X10*3/uL [facility] Lymphocytes Absolute Auto 1.7 1.2 - 4.9 X10*3/uL [facility] Monocytes Absolute Auto 0.4 0.1 - 1.2 X10*3/uL [facility] Eosinophils Absolute Auto 0.1 0.0 - 0.4 X10*3/uL [facility] Basophils Absolute Auto 0.0 0.0 - 0.2 X10*3/uL [facility] NRBC Abs Auto 0.000 0.0 - 0.012 X10*3/uL [facility] Blood Venous blood specimen / Unknown 12/24/2024 8:20 AM EDT 12/24/2024 11:37 AM EDT us Latricia Gonzales MD LAB BLOOD ORDERABLES Final Res ult [facility] [address] [place] [phone] documented in this encounter Visit Diagnoses Diagnosis Iron deficiency anemia secondary to inadequate dietary iron intake- Primary Screening for cervical cancer- Primary Screening for malignant neoplasm of the cervix Acute pain of right shoulder Iron deficiency anemia secondary to inadequate dietary iron intake documented in this encounter Additional Health Concerns Assessment Noted Time PHQ-9 Depression Total Score: 2 10/13/19 2:23 PM EDT documented as of this encounter Care Teams Affiliate Marketing Specialist Relationship Specialty Start Date End Date Latricia Gonzales MD [address] [place] [phone] PCP - General Family Medicine 10/12/24 documented as of this encounter
--- OUTSIDE RECORDS SUMMARY | 2025-01-11 11:12 | XMS_ITS | Encounter Summary ---
Author Organization [employer] Address [address] [place] [address] Care Team Providers Care Child Support Agent Name Role Phone Latricia Gonzales MD Primary Care Provider [phone] Reason for Visit * Reason Onset Date Comments chart prep 01/10/2025 Encounter Details Date Type Department Care Team ([facility] st Contact Info) Description 01/10/2025 Telephone [facility] [address] [place], [place] [phone] Latricia Gonzales MD [address] [place], [place] [phone] chart prep Social History Tobacco Use Types Packs/Day Years [...] AM EDT documented as of this encounter Miscellaneous Notes * Telephone Encounter - Izzy Orona [place] - 01/10/2025 1:23 PM EDT Chart Prep Labs: done Images: not applicable Referrals: not applicable Vaccines due: Covid, Flu, Tdap, Hep B, and HPV Screenings: pap smear Overdue care gaps: PHQ-9, KVNG-7, and Disability screen documented in this encounter Plan of Treatment Upcoming Encounters Date Type Department Care Team (Latest Contact Info) Description 01/11/2025 11:30 AM EDT Procedure Visit [facility] [address] [place] [address] Latricia Gonzales MD [address] [place] [address] Screening for cervical cancer (Primary Dx); Acute pain of right shoulder; Iron deficiency anemia secondary to inadequate dietary iron intake documented as of this encounter Visit Diagnoses Not on filedocumented in this encounter Additional Health Concerns Assessment Noted Time PHQ-9 Depression Total Score: 2 10/13/19 25 2:23 PM EDT documented as of this encounter Care Teams Child Support Agent Relationship Specialty Start Date End Date Latricia Gonzales MD [address] [place] [address] PCP - General Family Medicine 10/12/24 documented as of this encounter
--- OUTSIDE RECORDS SUMMARY | 2025-01-11 11:12 | XMS_ITS | Encounter Summary ---
Author Organization [employer] Address [address] [place] [address] Care Team Providers Care Park Interpretive Specialist Name Role Phone Latricia Gonzales MD Primary Care Provider [phone] Reason for Visit * Reason Onset Date Comments Dr. Socorro [place] Student case 12/07/2024 Encounter Details Date Type Department Care Team ([facility] st Contact Info) Description 12/07/2024 Telephone [facility] [address] [place], [place] [phone] Mak Adam, SARAH [address] [place], [place] [phone] Dr. Socorro [place] Student case Social History Tobacco Use Types Packs/Day Years [...] encounter Miscellaneous Notes * Telephone Encounter - Rebecca Garcia - 12/07/2024 3:23 PM EDT [facility] called in stating that they wanted clarification on provider name on lab slip. It is Wilbur the student. Lab is requested that provider that is overseeing should have their name also on lab slip per [facility] request documented in this encounter Plan of Treatment Upcoming Encounters Date Type Department Care Team (Latest Contact Info) Description 01/11/2025 11:30 AM EDT Procedure Visit [facility] [address] [place], [place] [phone] Latricia Gonzales MD [address] [place] [address] Screening for cervical cancer (Primary Dx); Acute pain of right shoulder; Iron deficiency anemia secondary to inadequate dietary iron intake documented as of this encounter Visit Diagnoses Not on filedocumented in this encounter Additional Health Concerns Assessment Noted Time PHQ-9 Depression Total Score: 2 10/13/19 25 2:23 PM EDT documented as of this encounter Care Teams Park Interpretive Specialist Relationship Specialty Start Date End Date Latricia Gonzales MD [address] [place] [address] PCP - General Family Medicine 10/12/24 documented as of this encounter
--- OUTSIDE RECORDS SUMMARY | 2025-01-11 11:12 | XMS_ITS | Encounter Summary ---
Author Organization [employer] Address [address] [place] [address] Care Team Providers Care Operations Research Scientist Name Role Phone Latricia Gonzales MD Primary Care Provider [phone] Encounter Details Date Type Department Care Team (Latest Contact Info) Description 01/11/2025 Travel Social History Tobacco Use Types Packs/Day Years [...] AM EDT documented as of this encounter Functional Status * Over the past 2 weeks, how often have you been bothered by any of the following problems? Question Answer Date of Assessment Author Patient Health Questionnaire -2 Score 2 01/11/2025 9:53 AM EDT Gerard Bueno MA * Little interest or pleasure in doing things Answer Date of Assessment Author Several days 01/11/2025 9:53 AM EDT Gerard Bueno MA * Feeling down, depressed, or hopeless Answer Date of Assessment Author Several days 01/11/2025 9:53 AM BRITTNEYT Gerard Bueno MA * Trouble falling or staying asleep, or sleeping too much Answer Date of Assessment Author More than half the days 01/11/2025 9:53 AM EDT Gerard Pisano MA * Feeling tired or having little energy Answer Date of Assessment Author Several days 01/11/2025 9:53 AM EDT Gerard Bueno MA * Poor appetite or overeating Answer Date of Assessment Author Not at all 01/11/2025 9:53 AM BRITTNEYT Gerard Bueno MA * Feeling bad about yourself - or that you are a failure or have let yourself or your family down Answer Date of Assessment Author Not at all 01/11/2025 9:53 AM BRITTNEYT Gerard Bueno MA * Trouble concentrating on things, such as reading the newspaper or watching television Answer Date of Assessment Author Not at all 01/11/2025 9:53 AM Gerard Ruelas MA * Moving or speaking so slowly that other people could have noticed? Or the opposite - being so fidgety or restless that you have been moving around a lot more than usual. Answer Date of Assessment Author Not at all 01/11/2025 9:53 AM Gerard Ruelas MA * Thoughts that you would be better off or hurting yourself in some way Answer Date of Assessment Author Not at all 01/11/2025 9:53 AM Gerard Ruelas MA * Patient Health Questionnaire-9 Score Answer Date of Assessment Author 5 01/11/2025 9:53 AM Gerard Ruelas MA * How difficult have these problems made it for you to do your work, take care of things at home, or get along with other people? Answer Date of Assessment Author Somewhat difficult 01/11/2025 9:53 AM Gerard Rodney MA * Over the last 2 weeks, how often have you been bothered by any of the following problems? Question Answer Date of Assessment Author Feeling nervous, anxious, or on edge 1 01/11/2025 9:55 AM Gerard Ruelas MA Not being able to stop or co ntrol worrying 0 01/11/2025 9:55 AM Gerard Ruelas MA Worrying too much about diff erent things 1 01/11/2025 9:55 AM Gerard Ruelas MA Trouble relaxing 2 01/11/2025 9:55 AM EDT Gerard Pisano MA Being so restless that it is hard to sit still 1 01/11/2025 9:55 AM Gerard Ruelas MA Becoming easily annoyed or irritable 1 01/11/2025 9:55 AM Gerard Ruelas MA Feeling afraid as if somethi ng awful might happen 1 01/11/2025 9:55 AM Gerard Ruelas MA KVNG-7 Total Score 7 01/11/2025 9:55 AM Gerard Rueals MA documented as of this encounter Plan of Treatment Upcoming Encounters Date Type Department Care Team (Latest Contact Info) Description 01/11/2025 11:30 AM EDT Procedure Visit [facility] MEDICINE [address] [place] [address] Latricia Gonzales MD [address] [place] [address] Screening for cervical cancer (Primary Dx); Acute pain of right shoulder; Iron deficiency anemia secondary to inadequate dietary iron intake documented as of this encounter Visit Diagnoses Not on filedocumented in this encounter Additional Health Concerns Assessment Noted Time PHQ-9 Depression Total Score: 5 01/12/20 25 9:53 AM EDT documented as of this encounter Care Teams Operations Research Scientist Relationship Specialty Start Date End Date Latricia Gonzales MD [address] [place] [address] PCP - General Family Medicine 10/12/24 documented as of this encounter
--- OUTSIDE RECORDS SUMMARY | 2025-01-11 11:30 | XMS_ITS | Encounter Summary ---
Author Organization [employer] Address [address] [place] [address] Care Team Providers Care Decorative Engraver Name Role Phone Lorraine Gonzales MD Primary Care Provider [phone] Reason for Visit * Reason Comments pap Encounter Details Date Type Department Care Team (Latest Contact Info) Description 01/11/2025 11:30 AM EDT Procedure Visit [facility] MEDICINE [address] [place], [place] [phone] Lorraine Gonzales MD [address] [place], [place] [phone] Screening for cervical cancer (Primary Dx); Acute pain of right shoulder; Iron deficiency anemia secondary to inadequate dietary iron intake Social History Tobacco Use Types Packs/Day Years [...] the past 12 months, has t he [employer], gas, oil or water [employer] threatened to shut off services in your [...] AM EDT documented as of this encounter Last Filed Vital Signs Vital Sign Reading [...] Mass Index 23.39 01/11/2025 9:53 AM EDT documented in this encounter Functional Status * Over the [...] 9:53 AM EDT Gerard Bueno MA * Trouble falling or [...] 01/11/2025 9:53 AM Gerard Ruelas MA * Trouble concentrating on things, such as reading the newspaper or watching television Answer Date of Assessment Author Not at all 01/11/2025 9:53 AM BRITTNEYT Gerard Bueno MA * Moving or speaking so slowly [...] Assessment Author 5 01/11/2025 9:53 AM Gerard Ruelsa MA * How difficult have these problems [...] or on edge 1 01/11/2025 9:55 AM EDT Gerard Bueno MA Not being able to stop or co ntrol worrying 0 01/11/2025 9:55 AM EDT Gerard Bueno MA Worrying too much about diff erent things 1 01/11/2025 9:55 AM EDT Gerard Bueno MA Trouble relaxing 2 01/11/2025 9:55 AM EDT Gerard Pisano MA Being so restless that it is hard to sit still 1 01/11/2025 9:55 AM EDT Gerard Bueno MA Becoming easily annoyed or irritable 1 01/11/2025 9:55 AM EDT Gerard Bueno MA Feeling afraid as if somethi ng awful might happen 1 01/11/2025 9:55 AM EDT Gerard Bueno MA KVNG-7 Total Score 7 01/11/2025 9:55 AM EDT Gerard Bueno MA documented as of this encounter Progress Notes * Lorraine Gonzales MD - 01/11/2025 11:30 AM EDT Images from the original note were not included. SUBJECTIVE: Sapna Skaggs is a 39 y.o. female who presents for pap. Denies recent illness, ER visit, orhospitalization. Acute Concerns: Previous Pap: unknown - : 4 Parity 3Term 3 Pre-Term 0 Abortion1 Living 3, ages 19, 17, 14 - Contraception: BTL - Breast symptoms: Denies any breast discharge, breast lump(s) and breast pain. - Postmenopausal: no - Menopausal symptoms: no - Sexual activity: AMAB partner - Safety concerns: no - Vaginal symptoms: endorses dyspareunia, denies vaginal discharge and vaginal itching - Denies urinary symptoms Interim Updates: Iron deficiency anemia Hg 7.7, heavy menses on second day, monthly periods Etiology is not understood Taking ferrous gluconate daily Patient Active Problem List Diagnosis Date Noted Acute pain of right shoulder 01/11/2025 Screening for cervical cancer 01/11/2025 Iron deficiency anemia 10/12/2024 Surgical History[1] Social History Social History Narrative Not on file Review of Systems Constitutional: Negative. Respiratory: Negative. Cardiovascular: Negative. Gastrointestinal: Negative. Musculoskeletal: Positive for myalgias. Shoulder pain Skin: Negative. OBJECTIVE: Vitals: 01/11/25 0953 BP: 100/60 BP Location: Left arm Patient Position: Sitting BP Cuff Size: Small adult Pulse: 100 Resp: 20 Temp: 97.1 ??F (36.2 ??C) TempSrc: Oral Weight: 115 lb 12.8 oz (52.5 kg) Height: 4' 11 (1.499 m) Physical Exam Vitals reviewed. Exam conducted with a head porter present. Constitutional: Appearance: Normal appearance. HENT: Head: Normocephalic and atraumatic. Cardiovascular: Rate and Rhythm: Normal rate and regular rhythm. Pulses: Normal pulses. Heart sounds: Normal heart sounds. Pulmonary: Effort: Pulmonary effort is normal. Breath sounds: Normal breath sounds. Genitourinary: Vagina: Normal. Cervix: Friability present. No cervical motion tenderness, discharge, lesion, erythema, cervical bleeding or eversion. Uterus: Normal. Comments: Tenderness at inferior L labial/introitus meeting point Musculoskeletal: General: Tenderness present. No swelling. Comments: Pain at R shoulder GC joint, with passive and active overhead motion Skin: General: Skin is warm and dry. Neurological: General: No focal deficit present. Mental Status: She is alert and oriented to person, place, and time. Psychiatric: Mood and Affect: Mood normal. Behavior: Behavior normal. ASSESSMENT/PLAN Problem List Items Addressed This Visit Iron deficiency anemia Relevant Medications ferrous gluconate (Fergon) 324 (38 Fe) MG tablet Other Relevant Orders CBC auto differential Acute pain of right shoulder Relevant Orders XR Shoulder 2+ Views Right Screening for cervical cancer - Primary Relevant Medications ferrous gluconate (Fergon) 324 (38 Fe) MG tablet Other Relevant Orders Pap Smear STI testing add on (NG, CT, Trich) Follow Up: 6 months or sooner prn Allergies[2] Current Medications[3] German Translation: Provided by [facility] staff member MARIA LUISA Gee [1] History reviewed. No pertinent surgical history. [2] Allergies Allergen Reactions Cephalexin [3] Current Outpatient Medications: ferrous gluconate (Fergon) 324 (38 Fe) MG tablet, Take 1 tablet (324 mg) by mouth with breakfast., Disp: 90 tablet, Rfl: 3 hydrocortisone 1 % cream, Apply topically 2 times daily., Disp: 56 g, Rfl: 0 polyethylene glycol, PEG, 3350 (MiraLax) 17 GM/SCOOP powder, Take 17 g by mouth Once per day. Take if become constipated from iron, Disp: 527 g, Rfl: 2 documented in this encounter Miscellaneous Notes * Addendum Note - Lorraine Gonzales MD - 01/11/2025 11:30 AM EDTAddended by: LORRAINE GONZALES on: 01/11/2025 10:55 AM Modules accepted: Orders documented in this encounter Plan of Treatment Scheduled Orders Name Type Priority Associated Diagnoses Order Schedule Pap Smear Pathology and Cytology Routine Screening for cervical cancer Ordered: 01/11/2025 STI testing add on (NG, CT, Trich) Pathology and Cytology Routine Screening for cervical cancer Ordered: 01/11/2025 CBC auto differential Lab Routine Iron deficiency anemia secondary to inadequate dietary iron intake Expected: 03/26/2025 (Approximate), Expires: 01/11/2026 Bacterial Vaginosis Panel Microbiology Routine Screening for cervical cancer Ordered: 01/11/2025 documented as of this encounter Procedures Procedure Name Priority Date/Time Associated Diagnosis Comments XR SHOULDER 2+ VIEWS RIGHT Routine 01/11/2025 10:02 AM EDT Acute pain of right shoulder documented in this encounter Results * XR Shoulder 2+ Views Right (01/11/2025 10:02 AM EDT) Anatomical Region Laterality Modality Upper Extremities, Shoulder Right Radi ographic Imaging 01/11/2025 10:0 2 AM EDT Narrative 01/11/2025 10:57 AM EDT [address] [address] XRay Report Signed Patient: Sapna Hickey MR#: [id number] : 1985 Acct:[id number] Age/Sex: 39 / F ADM Date: 01/11/25 [facility] Attending Dr: Lorraine Gonzales MD Ordering Physician: Lorraine Gonzales Date of Service: 01/11/25 Procedure(s): XR shoulder RT min 2V Accession Number(s): [id number] cc: Lorraine Gonzales EXAMINATION: XR SHOULDER, RIGHT CLINICAL INFORMATION: Right soulder pain with overhead motion at joint COMPARISON: None available. TECHNIQUE: AP external rotation, Grashey, scapular Y, and axillary views of the right shoulder. FINDINGS: The bones and soft tissues are normal. No fracture. Glenohumeral and acromioclavicular alignment is anatomic with normal joint space. No abnormal soft tissue calcifications. XR/XR shoulder RT min 2V IMPRESSION: Unremarkable right shoulder. Electronically signed by: Rian Barnett MD 01/11/2025 10:55 AM EDT RP Dictated By: Rian Barnett MD Signed By: <Electronically signed by Rian Barnett MD in OV> 01/11/25 1055 DD/ 1002 TD/TT: 01/11/25 1050 Deck Hand: Procedure Note Donotbyroninterpreter, Image - 01/11/[address] [address] XRay Report Signed Patient: Sapna Hickey#: [id number] : 1985Acct:[id number] Age/Sex: 39 / FADM Date: 01/11/25 Loc: HO.[facility] Attending Dr: Lorraine Gonzales MD Ordering Physician: Lorraine Gonzales Date of Service: 01/11/25 Procedure(s): XR shoulder RT min 2V Accession Number(s): [id number] cc: Lorraine Gonzales EXAMINATION: XR SHOULDER, RIGHT CLINICAL INFORMATION: [...] Rian Barnett MD 01/11/2025 10:55 AM EDT RP Dictated By: Rian Barnett MD Signed By: <Electronically signed by Rian Barnett MD in OV> 01/11/25 1055 DD/ 1002 TD/TT: 01/11/25 1050 Deck Hand: Lorraine Gonzales MD IMG XR PROCEDURES Final Result documented in this encounter Visit Diagnoses Diagnosis Screening for cervical cancer- Primary Screening for malignant neoplasm of the cervix Acute pain of right shoulder Iron deficiency anemia secondary to inadequate dietary iron intake documented in this encounter Additional Health Concerns Assessment Noted Time PHQ-9 Depression Total Score: 5 01/12/20 9:53 AM EDT documented as of this encounter Care Teams Decorative Engraver Relationship Specialty Start Date End Date Lorraine Gonzales MD [address] [place] [phone] PCP - General Family Medicine 10/12/24 documented as of this encounter
[2025-01-11 20:54] LABS: Bacterial Vaginosis PCR POSITIVE (Negative); Candida Group PCR NOT DETECTED (Not Detect); Candida glab krusei PCR NOT DETECTED (Not Detect); Trichomonas vaginalis PCR NOT DETECTED (Not Detect)
== END 2025-01-11 10:28 | disposition home or self-care (01) ==
LOC: HO.HHCX 10:27
PROVIDERS: PCP General Practice; Visit Provider General Practice
DX: Z12.4 Encounter for screening for malignant neoplasm of cervix (principal); Z11.51 Encounter for screening for human papillomavirus (HPV); M25.511 Pain in right shoulder
CPT/HCPCS: 73030; 81515; 87491; 87591; 87626; 87661; 88175

== ENCOUNTER → 2025-01-11 10:41 | Outpatient (BNV) | payer MEDICAID, SELFPAY | PROVIDERS: PCP General Practice; Visit Provider Radiology Diagnostic Radiology | DX: M25.511 Pain in right shoulder (principal) | CPT/HCPCS: 73030 ==

== ENCOUNTER 2025-01-11 12:10 | Outpatient (REF) | payer MEDICAID, SELFPAY ==
[2025-01-13 16:18] LABS: C. trachomatis RNA TMA NOT DETECTED (NOT DETECTED); N. gonorrhoeae RNA TMA NOT DETECTED (NOT DETECTED); Trichomonas (NAAT) NOT DETECTED (NOT DETECTED)
--- OUTSIDE RECORDS SUMMARY | 2025-01-24 14:36 | XMS_ITS | Encounter Summary ---
Author Organization [employer] Address [address] [place] [address] Care Team Providers Care Roll Dough Divider Name Role Phone Latricia Gonzales MD Primary Care Provider [phone] Encounter Details Date Type Department Care Team ([facility] st Contact Info) Description 12/15/2024 Orders Only [facility] MEDICINE [address] [place], [place] [phone] Latricia Gonzales MD [address] [place], [place] [phone] Iron deficiency anemia secondary to inadequate dietary [...] the past 12 months, has t he [employer], gas, oil or water company threatened to [...] as of this encounter Plan of Treatment Not on file documented as of this encounter Procedures Procedure Name Priority Date/Time Associated Diagnosis Comments HPV DNA, LOW/HIGH RISK Routine 01/11/2025 12:00 AM EDT Iron deficiency anemia secondary to inadequate dietary iron intake CBC WITH AUTO DIFFERENTIAL Routine 12/24/2024 8:20 AM EDT Iron deficiency anemia secondary to inadequate dietary iron intake documented in this encounter Results * HPV DNA, Low/High Risk (01/11/2025 12:00 AM EDT) HPV High Risk Negative Negative [facility] HPV Genotype 16 Negative Negative [facility] HPV Genotype 18 Negative Negative [facility] Comment:HPV testing performe d at [facility] (CLIA#[id number]), [address] [place] [id number].Testing for HPV was performed using the [employer]system. The presence of HPV in the female genital tract isassociated with a number of diseases, including cervicalcarcinoma. The HPV DNA high risk pool tests for HPV 31, 33,35, 39, 45, 51, 52, 56, 58, 59, 66 and 68. The testing forHPV 16 and 18 genotypes has also been performed. A positiveresult indicates detection of nucleic acid sequences fromone or more subtypes, whereas a negative result indicatessuch sequences were not detected. 01/11/2025 01/12/2025 8:5 1 AM EDT us Latricia Gonzales MD LAB BLOOD ORDERABLES Final Res ult [facility] [address] [place] [phone] * (ABNORMAL) CBC auto differential (12/24/2024 8:20 AM EDT) White Blood Count 5.3 4.8 - 10.8 X10*3/uL [facility] Red Blood Count 4.03(L) 4.20 - 5.50 X10*6/uL [facility] Hemoglobin 7.7(L) 12.0 - 16.0 g/dl [facility] Hematocrit 28.2(L) 37.0 - 47.0 % [facility] Mean Corpuscular Volume 70.0(L) 80.0 - 98.0 fL [facility] Mean Corpuscular Hemoglobin 19.1(L) 27.0 - 33.0 pg [facility] Mean Corpuscular HGB Conc 27.3(L) 31.0 - 35.0 g/dl [facility] Red Cell Distribution Width 19.3(H) 11.0 - 16.0 % [facility] Platelet Count 399 160 - 400 X10*3/uL [facility] Mean Platelet Volume 9.3(L) 9.4 - 12.3 fL [facility] Neutrophils Percent Auto 57.8 45 - 73 % [facility] Imm Gran Pct Auto 0.2 0.0 - 0.4 % [facility] Lymphocytes Percent Auto 31.9 20 - 40 % [facility] Monocytes Percent Auto 7.8 2 - 11 % [facility] Eosinophils Percent Auto 1.7 0 - 4 % [facility] Basophils Percent Auto 0.6 0 - 2 % [facility] NRBC Pct Auto 0.0 0.0 - 0.2 /100WBC [facility] Neutrophils Absolute Auto 3.1 2.0 - 8.3 x10*3/uL [facility] Imm Gran Abs Auto 0.01 0.00 - 0.03 X10*3/uL [facility] Lymphocytes Absolute Auto 1.7 1.2 - 4.9 X10*3/uL [facility] Monocytes Absolute Auto 0.4 0.1 - 1.2 X10*3/uL [facility] Eosinophils Absolute Auto 0.1 0.0 - 0.4 X10*3/uL [facility] Basophils Absolute Auto 0.0 0.0 - 0.2 X10*3/uL [facility] NRBC Abs Auto 0.000 0.0 - 0.012 X10*3/uL [facility] Blood Venous blood specimen / Unknown 12/24/2024 8:20 AM EDT 12/24/2024 11:37 AM EDT us Latricia Gonzales MD LAB BLOOD ORDERABLES Final Res ult [facility] [address] [place] [phone] documented in this encounter Visit Diagnoses Diagnosis Iron deficiency anemia secondary to inadequate dietary iron intake- Primary documented in this encounter Additional Health Concerns Assessment Noted Time PHQ-9 Depression Total Score: 2 10/13/19 25 2:23 PM EDT documented as of this encounter Care Teams Roll Dough Divider Relationship Specialty Start Date End Date Latricia Gonzales MD [address] [place] [phone] PCP - General Family Medicine 10/12/24 documented as of this encounter
--- OUTSIDE RECORDS SUMMARY | 2025-01-24 14:36 | XMS_ITS | Clinical Summary ---
Author Organization [employer] Address [address] [place] [address] Care Team Providers Care Service Desk Team Lead Name Role Phone Latricia Gonzales MD Primary Care Provider [phone] Allergies Active Allergy Reactions Criticality Noted Date [...] breakfast. 90 tablet 3 01/12/20 25 Active metroNIDAZOLE (Metrogel) 0.75 % vaginal gelIndication s:Bacterial vaginosis Insert into the vagina at bedtime for 7 days. 70 g 01/19/20 25 025 Active ferrous gluconate (Fergon) 324 (38 Fe) [...] Encounters Date Type Department Care Team Description 01/18/2025 Results Follow-Up [address] [address] Jacquelin Jiménez MD Pap Smear, STI testing add on (NG, CT, Trich), Bacterial Vaginosis Panel 01/11/2025 11:30 AM EDT Procedure Visit [address] [address] Latricia Gonzales MD Screening for cervical cancer (Primary Dx); Acute pain of right shoulder; Iron deficiency anemia secondary to inadequate dietary iron intake; Bacterial vaginosis 01/11/2025 Travel 01/10/[address] [address] Latricia Gonzales MD chart prep 12/26/2024 Results Follow-Up [facility] [address] [place] [phone] Latricia Gonzales MD CBC auto differential, HPV DNA, Low/High Risk 12/15/2024 Orders Only [address] [address] Latricia Gonzales MD Iron deficiency anemia secondary to inadequate dietary iron intake (Primary Dx) 12/14/2024 2:30 PM EDT Office Visit [facility] [address] [place] [phone] Karen Bowles Missing teeth, acquired (Primary Dx) 12/07/2024 Telephone [facility] [address] [place] [phone] Yen Bu Student case 12/03/2024 1:00 PM EDT Office Visit [facility] [address] [place] [phone] Karen Bowles Missing teeth, acquired (Primary Dx) 11/26/2024 10:30 AM EDT Office Visit [facility] [address] [place] [phone] Karen Bowles Excessive attrition of teeth (Primary Dx) 11/25/2024 Travel 11/23/2024 9:30 AM EDT Office Visit [facility] [address] [place] [phone] Karen Bowles Excessive attrition of teeth (Primary Dx); Dental caries; Dental plaque; Gingival bleeding; Missing teeth, acquired; Dental calculus from Last 3 Months Social History Tobacco [...] 01/11/2025 9:53 AM EDT Plan of Treatment Health Maintenance Due Date Last Done Comments HIV Screening 1985 HPV Vaccines (1 - 3-dose series) 12/30/1999 Hepatitis C Screening 2002 DTaP/Tdap/Td Vaccines (1 - Tdap) 12/30/2003 Hepatitis B Vaccines (1 of 3 - 19+ 3-dose series) 12/30/2003 Mammogram 2024 COVID-19 Vaccine ( - 2023-2 5 season) 2025 Influenza Vaccine (#1) 2025 Dental Oral Exam 05/27/2025 11/23/2024 Dental Prophylaxis 05/27/2025 11/23/2024 SDOH Screening 09/30/2025 09/30/2024 Alcohol/Substance Use Screening 10/12/2025 10/12/2024 Diabetes: Hemoglobin A1C 10/12/2025 10/12/2024 Dental X-Ray: Bitewings 11/24/2025 11/23/2024 Depression Screening 01/11/2026 01/11/2025, 01/11/2025 Disability Screening 01/11/2026 01/11/2025 Family Planning (PISQ) 01/11/2026 01/11/2025 Tobacco Screening 01/11/2026 01/11/2025 Dental X-Ray: Full Mouth 11/25/2027 11/23/2024 Cervical Cancer Screening 01/11/2030 HPV/Cotest 01/11/2030 01/11/2025 Pap Smear 01/11/2030 01/11/2025 Zoster Vaccines (1 of 2) 2034 RSV [...] Procedure Name Priority Date/Time Associated Diagnosis Comments BACTERIAL VAGINOSIS PANEL Routine 01/11/2025 11:32 AM EDT Screening for cervical cancer XR SHOULDER 2+ VIEWS RIGHT Routine 01/11/2025 10:02 AM EDT Acute pain of right shoulder CHLAMYDIA/N. GONORRHOEAE AND T. VAGINALIS RNA, QUAL,TMA Routine 01/11/2025 12:00 AM EDT Screening for cervical cancer PAP SMEAR Routine 01/11/2025 12:00 AM EDT Screening for cervical cancer HPV DNA, LOW/HIGH RISK Routine 12:00 AM EDT Iron deficiency anemia secondary [...] EDT Other fatigue from Last 3 Months or Most Recently Relevant to Health Maintenance Results * (ABNORMAL) Bacterial Vaginosis Panel (01/11/2025 11:32 AM EDT) TRICHOMONAS VAGINALIS DETECTION BY PCR NOT DETECTED Not Detect LABS BACTERIAL VAGINOSIS DETECTION BY PCR POSITIVE(A) Negative LABS Comment:The BV organism targ ets of the Xpert Xpress MVP test can becommensal in women; Xpert Xpress MVP positive results forbacterial vaginosis should be considered in conjunction withother clinical and patient information to determine thedisease status. Organisms that are not detected by the XpertXpress MVP test have also been reported to be associatedwith BV and aerobic vaginitis.The Xpert Xpress MVP test performance has not been evaluatedin patients under the age of 14. ANANYA GROUP DETECTION BY PCR NOT DETECTED Not Detect LABS Ananya glab krusei PCR NOT DETECTED Not Detect LABS Swab Vaginal structure / Unknown 01/11/2025 11:32 AM EDT 01/11/2025 4:45 PM EDT us Latricia Gonzales MD LAB MICROBIOLOGY - GENERAL ORD ERABLES Final Result LABS [address] [place] [phone] * XR Shoulder 2+ Views Right (01/11/2025 10:02 AM EDT) Anatomical Region Laterality Modality Upper Extremities, Shoulder Right Radi ographic Imaging 01/11/2025 10:0 2 AM EDT Narrative 01/11/2025 10:57 AM EDT [address] [address] XRay Report Signed Patient: Sapna Hickey MR#: [id number] : 1985 Acct:[id number] Age/Sex: 39 / F ADM Date: 01/11/25 Loc: HO.HHCX Attending Dr: Latricia Gonzales MD Ordering Physician: Latricia Gonzales Date of Service: 01/11/25 Procedure(s): XR shoulder RT min 2V Accession Number(s): [id number] cc: Latricia Gonzales EXAMINATION: XR SHOULDER, RIGHT [...] 01/11/25 1055 DD/ 1002 TD/TT: 01/11/25 1050 Furnace Utility Operator: Procedure Note Donotuseinterpreter, Image - 01/11/2025 [place] [address] XRay Report Signed Patient: Sapna Hickey#: M [id number] : 1985Acct:[id number] Age/Sex: 39 / FADM Date: 01/11/25 Loc: HO.HHCX Attending Dr: Latricia Gonzales MD Ordering Physician: Latricia Gonzales Date of Service: 01/11/25 Procedure(s): XR shoulder RT min 2V Accession Number(s): [id number] cc: Latricia Gonzales EXAMINATION: XR SHOULDER, RIGHT [...] 01/11/25 1055 DD/ 1002 TD/TT: 01/11/25 1050 Furnace Utility Operator: Latricia Gonzales MD IMG XR PROCEDURES Final Result * STI testing add on (NG, CT, Trich) (01/11/2025 12:00 AM EDT) Trichomonas (NAAT) NOT DETECTED NOT DETECTED LABS Comment:The analytical perfo rmance characteristics of thisassay have been determined by [facility]. Themodifications have not been cleared or approved bythe FDA. This assay has been validated pursuant to theCLIA regulations and is used for clinical purposes.For additional information, please refer tohttp://education.[employer]/faq/Trichomonastma(This link is being provided for information/educational purposes only.)THIS TEST WAS PERFORMED AT:[facility] [place] [id number] CALDWELL MD CTNG Ref Lab NOT DETECTED NOT DETECTED LABS NG Ref Lab NOT DETECTED NOT DETECTED LABS ThinPrep vial Cervix uteri structure / Unknown 01/11/2025 01/12/2025 8:51 AM EDT Narrative LABS - 01/13/2025 4:18 PM EDT Collection Date: [id number] by: ANT [place]: Cervix us Latricia Gonzales MD LAB CYTOLOGY ORDERABLES Final Result LABS [address] [place] [phone] * HPV DNA, Low/High Risk (01/11/2025 12:00 AM EDT) HPV High Risk Negative Negative [facility] HPV Genotype 16 Negative Negative [facility] HPV Genotype 18 Negative Negative [facility] Comment:HPV testing performe d at [facility] (CLIA#[id number]), [address] [place] [address].Testing for HPV was performed using the Abena ROSALINA 6800system. The presence of HPV in the female [...] MD LAB BLOOD ORDERABLES Final Res ult LABS [address] [place] [phone] * Pap Smear (01/11/2025 12:00 AM EDT) Swab Cervical swab / Unknown 01/11/2025 01/12/2025 8:51 AM EDT Narrative LABS - 01/18/2025 10:49 AM EDT ----- ------- Name: Sapna Hickey Age/Sex: 39/F : 1985 Unit#: [id number] Attend Dr: Re01/11/25 Status: PRE REF Location: HO.LNP Disch: ----- ------- SPEC : [id number] RECD: 01/12/25 STATUS: OZZIE HAMMOND NUM: [id number] DORCAS: 01/11/250000 SUBM DR: Latricia Gonzales ENTERED: 01/12/25 SP TYPE: Pap Smr OTHR DR: ORDERED: Pap Smear Interpretation Satisfactory for evaluation. Negative for intraepithelial lesion or malignancy. Coccobacilli consistent with shift in vaginal luis felipe. Mild inflammation. HPV High Risk: Negative HPV Genotyping 16: Negative HPV Genotyping 18: Negative Clinical Information LMP: 12/27/2024 Previous PAP test: First PAP Material Received ThinPrep-Cervical PAP Disclaimer As of March 10, 2024, the technical services to include automated prescreening performed by the ThinPrep Imaging System, PAP screening and HPV testing will be performed at [facility] (CLIA #[id number]), [address] [place] [address]. Testing for HPV was performed using the Abena ROSALINA 6800 system. The presence of HPV in the female genital tract is associated with a number of diseases, including cervical carcinoma. The HPV DNA high risk pool tests for HPV 31, 33, 35, 39, 45, 51, 52, 56, 58, 59, 66 and 68. The testing for HPV 16 and 18 genotypes has also been performed. A positive result indicates detection of nucleic acid sequences from one or more subtypes, whereas a negative result indicates such sequences were not detected. All professional services are performed by [facility] ([address] [place] [address], [place] [address]; ; CLIA #[id number]). The PAP Test is a screening procedure with the inherent possibility of both false negative and false positive results. Results should be interpreted in the context of historic and current clinical findings. Reliability of the PAP Test is enhanced by performing the test on a regular repetitive basis. CONTINUED ON NEXT PAGE ----- ------- Name: Carolyn GilesSapna Age/Sex: 39/F : 1985 Unit#: [id number] Attend Dr: Re01/11/25 Status: PRE REF Location: [facility] Disch: ----- ------- SPEC : [id number] RECD: 01/12/25 STATUS: OZZIE MANISH NUM: [id number] DORCAS: 01/11/25- [facility] DR: Latricia Gonzales ENTERED: 01/12/25 SP TYPE: Pap Eugenio CABRALES DR: ORDERED: Pap Smear ----- ------- Signed (signature on file) FAUSTINA Palmer ([facility]) 01/18/25 1049 ----- ------- END OF REPORT Latricia Gonzales MD LAB CYTOLOGY ORDERABLES Final Result LABS [address] [place] [phone] [phone] * (ABNORMAL) CBC auto differential (12/24/2024 8:20 AM EDT) Only the most recent of2 resultswithin the time period is included. White Blood Count 5.3 4.8 - 10.8 X10*3/uL LABS Red Blood Count 4.03(L) 4.20 - 5.50 X10*6/uL LABS Hemoglobin 7.7(L) 12.0 - 16.0 g/dl LABS Hematocrit 28.2(L) 37.0 - 47.0 % LABS Mean Corpuscular Volume 70.0(L) 80.0 - 98.0 fL LABS Mean Corpuscular Hemoglobin 19.1(L) 27.0 - 33.0 pg LABS Mean Corpuscular HGB Conc 27.3(L) 31.0 - 35.0 g/dl LABS Red Cell Distribution Width 19.3(H) 11.0 - 16.0 % LABS Platelet Count 399 160 - 400 X10*3/uL LABS Mean Platelet Volume 9.3(L) 9.4 - 12.3 fL LABS Neutrophils Percent Auto 57.8 45 - 73 % LABS Imm Gran Pct Auto 0.2 0.0 - 0.4 % LABS Lymphocytes Percent Auto 31.9 20 - 40 % LABS Monocytes Percent Auto 7.8 2 - 11 % LABS Eosinophils Percent Auto 1.7 0 - 4 % LABS Basophils Percent Auto 0.6 0 - 2 % LABS NRBC Pct Auto 0.0 0.0 - 0.2 /100WBC LABS Neutrophils Absolute Auto 3.1 2.0 - 8.3 x10*3/uL LABS Imm Gran Abs Auto 0.01 0.00 - 0.03 X10*3/uL LABS Lymphocytes Absolute Auto 1.7 1.2 - 4.9 X10*3/uL LABS Monocytes Absolute Auto 0.4 0.1 - 1.2 X10*3/uL LABS Eosinophils Absolute Auto 0.1 0.0 - 0.4 X10*3/uL LABS Basophils Absolute Auto 0.0 0.0 - 0.2 X10*3/uL LABS NRBC Abs Auto 0.000 0.0 - 0.012 X10*3/uL LABS Blood Venous blood specimen / Unknown 12/24/2024 8:20 AM EDT 12/24/2024 11:37 AM EDT us Latricia Gonzales MD LAB BLOOD ORDERABLES Final Res ult LABS [address] [place] [phone] * Hemoglobin A1c (10/12/2024 10:54 AM EDT) Hemoglobin A1c 5.8 <6.0 % [facility] Comment:Hemoglobin A1C Refer ence Range Adults: 4.8 - 6.0 % Non diabetic: < 6.0 % Goal: < 7.0 %Additional Action Suggested: > 8.0 %Note: Hemoglobin A1c results are invalid for patients with abnormal amounts of HbF. Blood transfusions may impact the HbA1c concentration in the patient sample. Estimated Average Glucose 120 mg/dL LABS Comment:eAG = Estimated ave rage glucose which is %A1C expressed asaverage glucose, using the formula of the A5C-SghkjcdUazzbzv Glucose study (ADAG), Diabetes Care, Vol.31,#8,2007 Blood Venous blood specimen / Unknown 10/12/2024 10:54 AM EDT 10/12/2024 1:22 PM EDT us Latricia Gonzales MD LAB BLOOD ORDERABLES Final Res ult LABS [address] [place] [phone] from Last 3 Months or Most Recently Relevant to Health Maintenance Insurance [employer] [id number] [address] DENTAL - [employer] (MEDICAID[place] AD[place] Care Teams Service Desk Team Lead Relationship Specialty Start Date End Date Latricia Gonzales MD [address] [place] [address] PCP - General Family Medicine 10/12/24
--- OUTSIDE RECORDS SUMMARY | 2025-01-24 14:36 | XMS_ITS | Encounter Summary ---
Author Organization [employer] Address [address] [place] [address] Care Team Providers Care Coat Joiner Lockstitch Name Role Phone Latricia Gonzales MD Primary Care Provider [phone] Reason for Visit * Reason Onset Date Comments Dr. Socorro Corona Student case 12/07/2024 Encounter Details Date Type Department Care Team ([facility] st Contact Info) Description 12/07/2024 Telephone [facility] [address] [place], [place] [phone] Mak Adam, SARAH [address], [place] [phone] Dr. Socorro Corona Student case Social History [...] documented in this encounter Plan of Treatment Not on file documented as of this encounter Visit Diagnoses Not on filedocumented in this encounter Additional Health Concerns Assessment Noted Time PHQ-9 Depression Total Score: 2 10/13/19 2:23 PM EDT documented as of this encounter Care Teams Coat Joiner Lockstitch Relationship Specialty Start Date End Date Latricia Gonzales MD [address] [place] [address] PCP - General Family Medicine 10/12/24 documented as of this encounter
--- OUTSIDE RECORDS SUMMARY | 2025-01-24 14:36 | XMS_ITS | Encounter Summary ---
Author Organization [employer] Address [address] [place] [address] Care Team Providers Care Overweaver Name Role Phone Latricia Gonzales MD Primary Care Provider [phone] Encounter Details Date Type Department Care Team ([facility] st Contact Info) Description 01/18/2025 Results Follow-Up [facility] [address] [place], [place] [phone] Jacquelin Jiménez MD [address] [place], [place] [phone] Pap Smear, STI testing add on (NG, CT, Trich), Bacterial Vaginosis Panel Social History Tobacco Use Types Packs/Day Years [...] documented as of this encounter Care Teams Overweaver Relationship Specialty Start Date End Date Latricia Gonzales MD [address] [place] [phone] PCP - General Family Medicine 10/12/24 documented as of this encounter
== END 2025-01-11 12:11 | disposition home or self-care (01) ==
LOC: HO.LNP 12:10
PROVIDERS: Visit Provider General Practice
DX: Z13.89 Encounter for screening for other disorder (principal)
CPT/HCPCS: 87491; 87591; 87626; 87661; 88175

== ENCOUNTER 2025-03-04 15:11 | Outpatient (REF) | payer MEDICAID, OTHER, SELFPAY ==
--- NOTE | ~2025-03-04 | XR_ITS ---
EXAMINATION: XR CERVICAL SPINE CLINICAL INFORMATION: Redicular pain in right shoulder, arm, hand COMPARISON: None available. TECHNIQUE: 3 views of the cervical spine were obtained. FINDINGS: There are no prevertebral soft tissue or bony abnormalities demonstrated. No compression fractures or subluxations are identified. Alignment is maintained at the atlanto-axial articulation. The disc spaces are preserved. No endplate changes are seen. The prevertebral soft tissues are normal. XR/XR cervical spine 3V IMPRESSION: Normal cervical spine radiographs. Electronically signed by: Jeremiah Zepeda MD 03/04/2025 03:38 PM EDT
--- OUTSIDE RECORDS SUMMARY | 2025-03-04 15:00 | XMS_ITS | Encounter Summary ---
Author Organization [employer] Address [address] [facility] [address] [place] [address] Care Team Providers Care Dental Office Manager Name Role Phone Latricia Gonzales MD Primary Care Provider [phone] Reason for Referral * Consultation (Routine) - Pending Review Specialty Diagnoses / Procedures Referred By Contac t Referred To Contact Hematology and Oncology Diagnoses Anemia, unspecified type Jazlyn Ledezma NP [address] [place] [address] Phone: tel: fax: Referral ID Status Reason Start Date Expiration Date Visits Requested Visits Authorized [id number] Pending Review Specialty Services Required 03/04/2026 1 1 * Consultation (Routine) - Pending Review Specialty Diagnoses / Procedures Referred By Contreyes t Referred To Contact Orthopaedic Surgery Diagnoses Acute pain of right shoulder Jazlyn Ledezma NP [address] [place] [address] Phone: tel: fax: Referral ID Status Reason Start Date Expiration Date Visits Requested Visits Authorized [id number] Pending Review Specialty Services Required 03/04/2026 1 1 Reason for Visit * Reason Comments sick visit Encounter Details Date Type Department Care Team ([facility] st Contact Info) Description 03/04/2025 3:00 PM EDT Office Visit [facility] [address] [place], [place] [phone] Other infective acute otitis externa of left ear (Primary Dx); Frontal sinus pain; Acute pain of right shoulder; Chronic right shoulder pain; Neck pain on right side; Anemia, unspecified type Social History Tobacco Use Types Packs/Day Years [...] Sign Reading Time Taken Comments Blood Pressure 115/68 03/04/2025 2:14 PM EDT Pulse 66 03/04/2025 2:14 PM EDT Temperature 37 C (98.6 F) 03/04/2025 2:14 PM EDT Respiratory Rate 14 03/04/2025 2:14 PM EDT Oxygen Saturation 99% 03/04/2025 2:14 PM EDT Inhaled Oxygen Concentration - - Weight 54.1 kg (119 lb 3.2 oz) 03/04/2025 2:14 P M EDT Height 149.9 cm (4' 11 ) 03/04/2025 2:14 PM EDT Body Mass Index 24.08 03/04/2025 2:14 PM EDT documented in this encounter Miscellaneous Notes * Assessment & Plan Note - ANTONIO Soares - 03/04/2025 3:00 PM EDT Associated Problem(s): Acute pain of right shoulder documented in this encounter Plan of Treatment Scheduled Orders Name Type Priority Associated Diagnoses Orde r Schedule Iron, TIBC And Ferritin Panel Lab Routine Anemia, unspecified type Expected: 03/04/2025 (Approximate), Expires: 03/04/2026 Scheduled Referrals Name Type Priority Associated Diagnoses Orde r Schedule Referral to Orthopaedic Surgery Outpatient Referral Routine Acute pain of right shoulder Expected: 03/04/2025 (Approximate), Expires: 03/04/2026 Referral to Hematology / Oncology Outpatient Referral Routine Anemia, unspecified type Expected: 03/04/2025 (Approximate), Expires: 03/04/2026 documented as of this encounter Procedures Procedure Name Priority Date/Time Associated Diagnosis Comments XR CERVICAL SPINE 3V Routine 03/04/2025 3:30 PM EDT Neck pain on right side CBC WITH AUTO DIFFERENTIAL Routine 03/04/2025 3:17 PM EDT Anemia, unspecified type documented in this encounter Results * XR CERVICAL SPINE 3V (03/04/2025 3:30 PM EDT) Anatomical Region Laterality Modality Abdomen Radiographic Macey ging 03/04/2025 3:30 PM EDT Narrative 03/04/2025 3:41 PM EDT [address] [address] XRay Report Signed Patient: Sapna Hickey MR#: [id number] : 1985 Acct:[id number] Age/Sex: 39 / F ADM Date: 03/04/25 [facility]: [facility] Attending Dr: Jazlyn Ledezma RIVER CROSSING SUPERVISOR Ordering Physician: Jazlyn Ledezma NP Date of Service: 03/04/25 Procedure(s): XR cervical spine 3V Accession Number(s): [id number] cc: Jazlyn Ledezma NP Reason for Exam: Redicular pain in right shoulder, arm, hand EXAMINATION: XR CERVICAL SPINE CLINICAL INFORMATION: Redicular pain in right shoulder, arm, hand COMPARISON: None available. TECHNIQUE: 3 views of the cervical spine were obtained. FINDINGS: There are no prevertebral soft tissue or bony abnormalities demonstrated. No compression fractures or subluxations are identified. Alignment is maintained at the atlanto-axial articulation. The disc spaces are preserved. No endplate changes are seen. The prevertebral soft tissues are normal. XR/XR cervical spine 3V IMPRESSION: Normal cervical spine radiographs. Electronically signed by: Jeremiah Zepeda MD 03/04/2025 03:38 PM EDT Dictated By: Jeremiah Zepeda MD Signed By: <Electronically signed by Jeremiah Zepeda MD in OV> 03/04/25 1538 DD/ 1530 TD/TT: 03/04/25 1531 Field Adjuster: Procedure Note Cynthiater, Image - 03/04/[address] [address] XRay Report Signed Patient: Sapna HickeyMR#: M [id number] : 1985Acct:[id number] Age/Sex: 39 / FADM Date: 03/04/25 Loc: HO.HHCL Attending Dr: Jazlyn Ledezma RIVER CROSSING SUPERVISOR Ordering Physician: Jazlyn Ledezma NP Date of Service: 03/04/25 Procedure(s): XR cervical spine 3V Accession Number(s): [id number] cc: Jazlyn Ledezma NP Reason for Exam: Redicular pain in right shoulder, arm, hand EXAMINATION: XR CERVICAL SPINE CLINICAL INFORMATION: Redicular pain in right shoulder, arm, hand COMPARISON: None available. TECHNIQUE: 3 views of the cervical spine were obtained. FINDINGS: There are no prevertebral soft tissue or bony abnormalities demonstrated. No compression fractures or subluxations are identified. Alignment is maintained at the atlanto-axial articulation. The disc spaces are preserved. No endplate changes are seen. The prevertebral soft tissues are normal. XR/XR cervical spine 3V IMPRESSION: Normal cervical spine radiographs. Electronically signed by: Jeremiah Zepeda MD 03/04/2025 03:38 PM EDT Dictated By: Jeremiah Zepeda MD Signed By: <Electronically signed by Jeremiah Zepeda MD in OV> 03/04/25 1538 DD/ 1530 TD/TT: 03/04/25 1531 Field Adjuster: Jazlyn Ledezma RIVER CROSSING SUPERVISOR IMG XR PROCEDURES Final Result * (ABNORMAL) CBC auto differential (03/04/2025 3:17 PM EDT) White Blood Count 8.9 4.8 - 10.8 X10*3/uL [facility] Red Blood Count 4.31 4.20 - 5.50 X10*6/uL [facility] Hemoglobin 9.6(L) 12.0 - 16.0 g/dl [facility] Hematocrit 32.1(L) 37.0 - 47.0 % [facility] Mean Corpuscular Volume 74.5(L) 80.0 - 98.0 fL [facility] Mean Corpuscular Hemoglobin 22.3(L) 27.0 - 33.0 pg [facility] Mean Corpuscular HGB Conc 29.9(L) 31.0 - 35.0 g/dl [facility] Red Cell Distribution Width 21.8(H) 11.0 - 16.0 % [facility] Platelet Count 437(H) 160 - 400 X10*3/uL [facility] Mean Platelet Volume 9.2(L) 9.4 - 12.3 fL [facility] Neutrophils Percent Auto 65.2 45 - 73 % [facility] Imm Gran Pct Auto 0.3 0.0 - 0.4 % [facility] Lymphocytes Percent Auto 26.3 20 - 40 % [facility] Monocytes Percent Auto 5.3 2 - 11 % [facility] Eosinophils Percent Auto 2.5 0 - 4 % [facility] Basophils Percent Auto 0.4 0 - 2 % [facility] NRBC Pct Auto 0.0 0.0 - 0.2 /100WBC [facility] Neutrophils Absolute Auto 5.8 2.0 - 8.3 x10*3/uL [facility] Imm Gran Abs Auto 0.03 0.00 - 0.03 X10*3/uL [facility] Lymphocytes Absolute Auto 2.3 1.2 - 4.9 X10*3/uL [facility] Monocytes Absolute Auto 0.5 0.1 - 1.2 X10*3/uL [facility] Eosinophils Absolute Auto 0.2 0.0 - 0.4 X10*3/uL [facility] Basophils Absolute Auto 0.0 0.0 - 0.2 X10*3/uL [facility] NRBC Abs Auto 0.000 0.0 - 0.012 X10*3/uL [facility] Blood Venous blood specimen / Unknown 03/04/2025 3:17 PM EDT 03/04/2025 4:08 PM EDT us Jazlyn Ledezma NP LAB BLOOD ORDERABLES Final Resul t [facility] [address] [place] [phone] documented in this encounter Visit Diagnoses Diagnosis Other infective acute otitis externa of left ear- Primary Frontal sinus pain Acute pain of right shoulder Chronic right shoulder pain Pain in joint, shoulder region Neck pain on right side Anemia, unspecified type documented in this encounter Additional Health Concerns Assessment Noted Time PHQ-9 Depression Total Score: 5 01/12/20 25 9:53 AM EDT documented as of this encounter Care Teams Dental Office Manager Relationship Specialty Start Date End Date Latricia Gonzales MD [address] [place] [phone] PCP - General Family Medicine 10/12/24 documented as of this encounter
[2025-03-04 16:09] LABS: MANUAL DIFF FLAG NO
[2025-03-04 16:17] LABS: Hematocrit 32.1 % (37.0-47.0); Hemoglobin 9.6 g/dl (12.0-16.0); Imm Gran Abs Auto 0.03 X10*3/uL (0.00-0.03); Imm Gran Pct Auto 0.3 % (0.0-0.4); Lymphocytes Absolute Auto 2.3 X10*3/uL (1.2-4.9); Mean Corpuscular HGB Conc 29.9 g/dl (31.0-35.0); Mean Corpuscular Hemoglobin 22.3 pg (27.0-33.0); Mean Corpuscular Volume 74.5 fL (80.0-98.0); NRBC Abs Auto 0.000 X10*3/uL (0.0-0.012); NRBC Pct Auto 0.0 /100WBC (0.0-0.2); Platelet Count 437 X10*3/uL (160-400); Red Blood Count 4.31 X10*6/uL (4.20-5.50); White Blood Count 8.9 X10*3/uL (4.8-10.8)
--- OUTSIDE RECORDS SUMMARY | 2025-03-04 17:41 | XMS_ITS | Encounter Summary ---
Author Organization [employer] Address [address] 7[address] [place] [address] Care Team Providers Care Marketing Automation Manager Name Role Phone Latricia Gonzales MD Primary Care Provider [phone] Reason for Visit * Reason Onset Date Comments Dr. Socorro Corona Student case 12/07/2024 Encounter Details Date Type Department Care Team ([facility] st Contact Info) Description 12/07/2024 Telephone [facility] [address] [place], [place] [phone] Mak Adam, SARAH [address], [place] [phone] Dr. Socorro Corona Student case Social History [...] provider name on lab slip. It is [place] the student. Lab is requested that provider [...] documented as of this encounter Care Teams Marketing Automation Manager Relationship Specialty Start Date End Date Latricia Gonzales MD [address] [place] [address] PCP - General Family Medicine 10/12/24 documented as of this encounter
--- OUTSIDE RECORDS SUMMARY | 2025-03-04 17:41 | XMS_ITS | Encounter Summary ---
Author Organization [employer] Address [address] 7[address] [place] [address] Care Team Providers Care Back Shoe Cutter Name Role Phone Latricia Gonzales MD Primary Care Provider [phone] Encounter Details Date Type Department Care Team (Latest Contact Info) Description 03/04/2025 Travel Social History Tobacco Use Types Packs/Day [...] documented as of this encounter Care Teams Back Shoe Cutter Relationship Specialty Start Date End Date Latricia Gonzales MD [address] [place] [address] PCP - General Family Medicine 10/12/24 documented as of this encounter
--- OUTSIDE RECORDS SUMMARY | 2025-03-04 17:41 | XMS_ITS | Encounter Summary ---
Author Organization [employer] Address [address] 7[address] [place] [address] Care Team Providers Care Watch Repair Technician Name Role Phone Latricia Gonzales MD Primary Care Provider [phone] Encounter Details Date Type Department Care Team ([facility] st Contact Info) Description 01/18/2025 Results Follow-Up [facility] MEDICINE [address] [place], [place] [phone] Jacquelin Jiménez MD [address] [place], [place] [phone] Pap Smear, STI testing add on (NG, [...] documented as of this encounter Care Teams Watch Repair Technician Relationship Specialty Start Date End Date Latricia Gonzales MD [address] [place] [phone] PCP - General Family Medicine 10/12/24 documented as of this encounter
--- OUTSIDE RECORDS SUMMARY | 2025-03-04 17:41 | XMS_ITS | Clinical Summary ---
Author Organization [employer] Address [address] 7[address] [place] [address] Care Team Providers Care Senior Design Engineering Specialist Name Role Phone Latricia Gonzales MD Primary Care Provider [phone] Allergies Active Allergy Reactions Criticality Noted Date Comments Cephalexin 11/23/2024 Medications polyethylene glycol, PEG, 3350 (MiraLax) 17 GM/SCOOP powderIndicatio ns:Iron deficiency anemia secondary to inadequate dietary iron intake Take 17 g by mouth Once per day. Take if become constipated from iron 527 g 2 5 10/13/19 Active hydrocortisone 1 % cream Apply topically 2 times daily. 56 g 5 Active ferrous gluconate (Fergon) 324 (38 Fe) MG tabletIndicatio ns:Iron deficiency anemia secondary to inadequate dietary iron intake Take 1 tablet (324 mg) by mouth with breakfast. 90 tablet 3 5 Active ciprofloxacin-h ydrocortisone (Cipro HC Otic) otic suspension Administer 3 drops into the left ear 2 times daily for 7 days. 10 mL 5 03/11/20 25 Active cefdinir (Omnicef) 300 MG capsule Take 1 capsule (300 mg) by mouth 2 times daily for 7 days. 14 capsule 5 03/11/20 Active Active Problems Problem Noted Date Diagnosed Date Acute pain of right shoulder 01/11/2025 Assessment & Plan (03/04/2025 2:56 PM EDT): Screening for cervical cancer 01/11/2025 Iron deficiency anemia 10/12/2024 Encounters Date Type Department Care Team Description 03/04/2025 3:00 PM EDT Office Visit [address] [address] Other infective acute otitis externa of left ear (Primary Dx); Frontal sinus pain; Acute pain of right shoulder; Chronic right shoulder pain; Neck pain on right side; Anemia, unspecified type 03/04/[address] [address] Jazlyn Ledezma NP 03/04/2025 Travel 03/03/[address] [address] Venkata Del Real FNP Chart prep 03/03/[address] [address] Latricia Gonzales MD Nurse Triage 01/18/2025 Results Follow-Up [address] [address] Jacquelin Jiménez MD Pap Smear, STI testing add on (NG, CT, Trich), Bacterial Vaginosis Panel 01/11/2025 11:30 AM EDT Procedure Visit [address] [address] Latricia Gonzales MD Screening for cervical cancer (Primary Dx); Acute pain of right shoulder; Iron deficiency anemia secondary to inadequate dietary iron intake; Bacterial vaginosis 01/11/2025 Travel 01/10/[address] [address] Latricia Gonzales MD chart prep 12/26/2024 Results Follow-Up [facility] [address] [place] [address] Latricia Gonzales MD CBC auto differential, HPV DNA, Low/High Risk 12/15/2024 Orders Only [address] [address] Latricia Gonzales MD Iron deficiency anemia secondary to inadequate dietary iron intake (Primary Dx) 12/14/2024 2:30 PM EDT Office Visit [facility] [address] [place] [phone] Karen Bowles Missing teeth, acquired (Primary Dx) 12/07/2024 Telephone [facility] [address] [place], [place] [phone] Mak Adam DDS Dr. Yen Bu Student case 12/03/2024 1:00 PM EDT Office Visit [facility] [address] [facility] [address] Karen Bowles Missing teeth, acquired (Primary Dx) from Last 3 Months Social History Tobacco [...] Mass Index 24.08 03/04/2025 2:14 PM EDT Plan of Treatment Health Maintenance Due Date Last Done Comments HIV Screening 1984 HPV Vaccines (1 - 3-dose series) 12/30/1999 Hepatitis C Screening 2002 DTaP/Tdap/Td Vaccines (1 - Tdap) 12/30/2003 Hepatitis B Vaccines (1 of 3 - 19+ 3-dose series) 12/30/2003 Mammogram 2024 COVID-19 Vaccine (1 - 2023-2 5 season) 2025 Influenza Vaccine (#1) 2025 Dental Oral Exam 05/27/2025 11/23/2024 Dental Prophylaxis 05/27/2025 11/23/2024 SDOH Screening 09/30/2025 09/30/2024 Alcohol/Substance Use Screening 10/12/2025 10/12/2024 Diabetes: Hemoglobin A1C 10/12/2025 10/12/2024 Dental X-Ray: Bitewings 11/24/2025 11/23/2024 Depression Screening 01/11/2026 01/11/2025, 01/11/2025 Disability Screening 01/11/2026 01/11/2025 Family Planning (PISQ) 01/11/2026 01/11/2025 Tobacco Screening 03/04/2026 03/04/2025 Dental X-Ray: Full Mouth 11/25/2027 11/23/2024 Cervical [...] 03/04/2025 3:17 PM EDT Anemia, unspecified type BACTERIAL VAGINOSIS PANEL Routine 01/11/2025 11:32 AM [...] IMPRESSION Routine 12/03/2024 1: 00 PM EDT PROPHYLAXIS - ADULT Routine 11/23/2024 9 :30 AM EDT INTRAORAL - COMPLETE SERIES OF RADIOGRAPHIC IMAGES Routine 11/23/2024 9:30 AM EDT COMPREHENSIVE ORAL EVALUATION - NEW OR ESTABLISHED PATIENT Routine 11/23/2024 9:30 AM EDT Excessive attrition of teeth Dental caries Dental plaque Gingival bleeding Missing teeth, acquired Dental calculus HEMOGLOBIN A1C Routine 10/12/2024 10:54 AM EDT Other fatigue from Last 3 Months or Most Recently Relevant to Health Maintenance Results * XR CERVICAL SPINE 3V (03/04/2025 3:30 PM EDT) Anatomical Region Laterality Modality Abdomen Radiographic Macey ging 03/04/2025 3:30 PM EDT Narrative 03/04/2025 3:41 PM EDT [address] [address] XRay Report Signed Patient: Sapna Hickey MR#: [id number] : 1985 Acct:[id number] Age/Sex: 39 / F ADM Date: 03/04/25 Loc: .[facility] Attending Dr: Jazlyn Ledezma WATERPROOFING MIXER Ordering Physician: Jazlyn Ledezma NP Date of Service: 03/04/25 Procedure(s): XR cervical spine 3V Accession Number(s): [id number] cc: Jazlyn Ledezma WATERPROOFING MIXER Reason for Exam: Redicular pain in right [...] Jeremiah Zepeda MD 03/04/2025 03:38 PM EDT RP Dictated By: Jeremiah Zepeda MD Signed By: <Electronically signed by Jeremiah Zepeda MD in OV> 03/04/25 1538 DD/ 1530 TD/TT: 03/04/25 1531 Manager Applied: Procedure Note Donotuseinterpreter, Image - 03/04/[address] [address] XRay Report Signed Patient: Sapna HickeyMR#: M [id number] : 1985Acct:[id number] Age/Sex: 39 / FADM Date: 03/04/25 Loc: HO.[facility] Attending Dr: Jazlyn Ledezma WATERPROOFING MIXER Ordering Physician: Jazlyn Ledezma NP Date of Service: 03/04/25 Procedure(s): XR cervical spine 3V Accession Number(s): [id number] cc: Jazlyn Ledezma NP Reason for Exam: [...] 03/04/25 1538 DD/ 1530 TD/TT: 03/04/25 1531 Manager Applied: Jazlyn Ledezma NP IMG XR PROCEDURES Final Result * (ABNORMAL) CBC auto differential (03/04/2025 3:17 PM EDT) Only the most recent of2 resultswithin the time period is included. White Blood Count 8.9 4.8 - 10.8 X10*3/uL [facility] Red Blood Count 4.31 4.20 - 5.50 X10*6/uL [facility] Hemoglobin 9.6(L) 12.0 - 16.0 g/dl [facility] Hematocrit 32.1(L) 37.0 - 47.0 % [facility] Mean Corpuscular Volume 74.5(L) 80.0 - 98.0 fL [facility] Mean Corpuscular Hemoglobin 22.3(L) 27.0 - 33.0 pg [facility] Mean Corpuscular HGB Conc 29.9(L) 31.0 - 35.0 g/dl [facility] Red Cell Distribution Width 21.8(H) 11.0 - 16.0 % [facility] Platelet Count 437(H) 160 - 400 X10*3/uL [facility] Mean Platelet Volume 9.2(L) 9.4 - 12.3 fL [facility] Neutrophils Percent Auto 65.2 45 - 73 % [facility] Imm Gran Pct Auto 0.3 0.0 - 0.4 % [facility] Lymphocytes Percent Auto 26.3 20 - 40 % [facility] Monocytes Percent Auto 5.3 2 - 11 % [facility] Eosinophils Percent Auto 2.5 0 - 4 % [facility] Basophils Percent Auto 0.4 0 - 2 % [facility] NRBC Pct Auto 0.0 0.0 - 0.2 /100WBC [facility] Neutrophils Absolute Auto 5.8 2.0 - 8.3 x10*3/uL [facility] Imm Gran Abs Auto 0.03 0.00 - 0.03 X10*3/uL [facility] Lymphocytes Absolute Auto 2.3 1.2 - 4.9 X10*3/uL [facility] Monocytes Absolute Auto 0.5 0.1 - 1.2 X10*3/uL [facility] Eosinophils Absolute Auto 0.2 0.0 - 0.4 X10*3/uL [facility] Basophils Absolute Auto 0.0 0.0 - 0.2 X10*3/uL [facility] NRBC Abs Auto 0.000 0.0 - 0.012 X10*3/uL [facility] Blood Venous blood specimen / Unknown 03/04/2025 3:17 PM EDT 03/04/2025 4:08 PM EDT us Jazlyn Ledezma NP LAB BLOOD ORDERABLES Final Resul t [facility] [address] [place] [phone] * (ABNORMAL) Bacterial Vaginosis Panel (01/11/2025 11:32 AM EDT) TRICHOMONAS VAGINALIS DETECTION BY PCR NOT DETECTED Not Detect [facility] BACTERIAL VAGINOSIS DETECTION BY PCR POSITIVE(A) Negative [facility] Comment:The BV organism targ ets of [...] DETECTION BY PCR NOT DETECTED Not Detect [facility] Ananya glab krusei PCR NOT DETECTED Not Detect [facility] Swab Vaginal structure / Unknown 01/11/2025 11:32 AM EDT 01/11/2025 4:45 PM EDT us Latricia Gonzales MD LAB MICROBIOLOGY - GENERAL ORD ERABLES Final Result Performing Organization Address City/State/[facility] Co de Phone Number [facility] [address] [place] [phone] * XR Shoulder 2+ Views Right (01/11/2025 10:02 AM EDT) Anatomical Region Laterality Modality Upper Extremities, Shoulder Right Radi ographic Imaging 01/11/2025 10:0 2 AM EDT Narrative 01/11/2025 10:57 [place] [address] XRay Report Signed Patient: Sapna Hickey MR#: M [id number] : 1985 Acct:[id number] Age/Sex: 39 / F ADM Date: 01/11/25 Loc: HO.[facility] Attending Dr: Latricia oGnzales MD Ordering Physician: Latricia Gonzales Date of Service: 01/11/25 Procedure(s): XR shoulder RT min 2V Accession Number(s): [id number] cc: Latricia Gonzales EXAMINATION: XR SHOULDER, RIGHT [...] 01/11/25 1055 DD/ 1002 TD/TT: 01/11/25 1050 Manager Applied: Procedure Note Donotuseinterpreter, Image - 01/11/[address] [address] XRay Report Signed Patient: Ankush Hickey#: M [id number] : 1985Acct:[id number] Age/Sex: 39 / FADM Date: 01/11/25 Loc: .[facility] Attending Dr: Latricia Gonzales MD Ordering Physician: Latricia Gonzales Date of Service: 01/11/25 Procedure(s): XR shoulder RT min 2V Accession Number(s): [id number] cc: Latricia Gonzales EXAMINATION: XR SHOULDER, RIGHT [...] 01/11/25 1055 DD/ 1002 TD/TT: 01/11/25 1050 Manager Applied: Latricia Gonzales MD IMG XR PROCEDURES Final Result * STI testing add on (NG, CT, Trich) (01/11/2025 12:00 AM EDT) Trichomonas (NAAT) NOT DETECTED NOT DETECTED [facility] Comment:The analytical perfo rmance characteristics of thisassay have been determined by [employer]. Themodifications have not been cleared or approved bythe FDA. This assay has been validated pursuant to theIA regulations and is used for clinical purposes.For additional information, please refer tohttp://education.The Farmery/faq/Trichomonastma(This link is being provided for information/educational purposes only.)THIS TEST WAS PERFORMED AT:[facility] [place] [phone] CALDWELL MD CTNG Ref Lab NOT DETECTED NOT DETECTED [facility] NG Ref Lab NOT DETECTED NOT DETECTED [facility] ThinPrep vial Cervix uteri structure / Unknown 01/11/2025 01/12/2025 8:51 AM EDT Narrative [facility] - 01/13/2025 4:18 PM EDT Collection Date: [id number] by: ANT [place]: Cervix Latricia Gonzales MD LAB CYTOLOGY ORDERABLES Final Result [facility] [address] [place] [phone] * HPV DNA, Low/High Risk (01/11/2025 12:00 AM EDT) HPV High Risk Negative Negative [facility] HPV Genotype 16 Negative Negative [facility] HPV Genotype 18 Negative Negative [facility] Comment:HPV testing performe d at [facility] (CLIA#[id number]), [address] [place] [address].Testing for HPV was performed using the Abena ROSALINA Yunzhisheng0system. The presence of HPV in the female [...] MD LAB BLOOD ORDERABLES Final Res ult [facility] [address] [place] [phone] * Pap Smear (01/11/2025 12:00 AM EDT) Swab Cervical swab / Unknown 01/11/2025 01/12/2025 8:51 AM EDT Sukhi [facility] - 01/18/2025 10:49 AM EDT ----- ------- Name: Sapna Hickey Age/Sex: 39/F : 1985 Unit#: [id number] Attend Dr: Re01/11/25 Status: PRE REF Location: [facility] Disch: ----- ------- SPEC : [id number] RECD: 01/12/25 STATUS: OZZIE HAMMOND NUM: [id number] DORCAS: 01/11/25-[address]: Latricia Gonzales ENTERED: 01/12/25 SP TYPE: Pap Smr [facility] DR: ORDERED: Pap Smear Interpretation Satisfactory for [...] and HPV testing will be performed at [facility] (CLIA #[id number]), [address] [place] [address]. Testing for HPV was performed using the Abena ROSALINA Yunzhisheng0 system. The presence of HPV in the [...] detected. All professional services are performed by [facility] ([address] [place] [address]; ; CLIA #[id number]). The PAP Test is a screening procedure with the inherent possibility of both false negative and false positive results. Results should be interpreted in the context of historic and current clinical findings. Reliability of the PAP Test is enhanced by performing the test on a regular repetitive basis. CONTINUED ON NEXT PAGE ----- ------- Name: Sapna Hickey Age/Sex: 39/F : 1985 Unit#: [id number] Attend Dr: Re01/11/25 Status: PRE REF Location: [facility] Disch: ----- ------- SPEC : [id number] RECD: 01/12/25 STATUS: OZZIE BARAHONADo NUM: [id number] DORCAS: 01/11/25-[address]: Latricia Gonzales ENTERED: 01/12/25 SP TYPE: Pap Eugenio CABRALES DR: ORDERED: Pap Smear ----- ------- Signed (signature on file) FAUSTINA Palmer ([facility]) 01/18/25 1049 ----- ------- END OF REPORT Latricia Gonzales MD LAB CYTOLOGY ORDERABLES Final Result [facility] [address] [place] [phone] * Hemoglobin A1c (10/12/2024 10:54 AM EDT) Hemoglobin A1c 5.8 <6.0 % [facility] Comment:Hemoglobin A1C Refer ence Range Adults: 4.8 - 6.0 % Non diabetic: < 6.0 % Goal: < 7.0 %Additional Action Suggested: > 8.0 %Note: Hemoglobin A1c results are invalid for patients with abnormal amounts of HbF. Blood transfusions may impact the HbA1c concentration in the patient sample. Estimated Average Glucose 120 mg/dL [facility] Comment:eAG = Estimated ave rage glucose which is %A1C expressed asaverage glucose, using the formula of the B9I-XrdzsbaZlychge Glucose study (ADAG), Diabetes Care, Vol.31,#8,Dec. 2007 Blood Venous blood specimen / Unknown 10/12/2024 10:54 AM EDT 10/12/2024 1:22 PM EDT us Latricia Gonzales MD LAB BLOOD ORDERABLES Final Res ult [facility] [address] [place] [phone] from Last 3 Months or Most Recently Relevant to Health Maintenance Insurance [facility] (MEDICAID) [place] AD[place] Care Teams Senior Design Engineering Specialist Relationship Specialty Start Date End Date Latricia Gonzales MD [address] [place] [phone] PCP - General Family Medicine 10/12/24
--- OUTSIDE RECORDS SUMMARY | 2025-03-04 17:41 | XMS_ITS | Encounter Summary ---
Author Organization [employer] Address [address] [place] [address] 7 [place] [address] Care Team Providers Care Site Supervising Technical Operator Name Role Phone Latricia Gonzales MD Primary Care Provider [phone] Reason for Visit * Reason Onset Date Comments Chart prep 03/03/2025 Encounter Details Date Type Department Care Team ([facility] st Contact Info) Description 03/03/2025 Telephone [facility] [address] [place], [place] [phone] Venkata Del Real FNP [address] [place] [address] Chart prep Social History Tobacco Use Types Packs/Day [...] the past 12 months, has t he [employer], gas, oil or water company threatened to [...] encounter Miscellaneous Notes * Telephone Encounter - Sumi Cohen MA - 03/03/2025 4:16 PM EDT Chart Prep Labs: done from 01/11/25 Images: done from 01/11/25 Referrals: not applicable Vaccines due: Covid, Flu, Tdap, Hep B, and HPV Screenings: mammogram and Hep C, HIV, LMP. Overdue care gaps: Tobacco documented in this encounter Plan of Treatment Not on file documented as of this encounter Visit Diagnoses Not on filedocumented in this encounter Additional Health Concerns Assessment Noted Time PHQ-9 Depression Total Score: 5 01/12/20 9:53 AM EDT documented as of this encounter Care Teams Site Supervising Technical Operator Relationship Specialty Start Date End Date Latricia Gonzales MD [address] [place] [address] PCP - General Family Medicine 10/12/24 documented as of this encounter
--- OUTSIDE RECORDS SUMMARY | 2025-03-04 17:41 | XMS_ITS | Encounter Summary ---
Author Organization [employer] Address [address] [place] [address] Care Team Providers Care Livestock Trader Name Role Phone Latricia Gonzales MD Primary Care Provider Encounter Details Date Type Department Care Team ([facility] st Contact Info) Description 03/04/2025 Telephone [facility] MEDICINE [address] [place], [place] [phone] Jazlyn Ledezma, JEANNIE [address] [place], [place] [phone] Social History Tobacco Use Types Packs/Day Years [...] encounter Miscellaneous Notes * Telephone Encounter - María Bolton RN - 03/04/2025 3:49 PM EDT Incoming message received from [facility] Pharmacy Linda reporting Jazlyn prescription Cefdinir but pharmacy has a record of pt getting hives and SOB with cephalosporins. Consulted with Marlene who report they consulted with [facility] pharmacy prior to prescription. They state that previous reaction was over 10 years ago and the medication is a 3rd generation cephalosporin. Also report that pt was recommended to stop taking the med and call 911 for any reaction. Linda verbalized understanding. documented in this encounter Plan of Treatment Not on file documented as of this encounter Visit Diagnoses Not on filedocumented in this encounter Additional Health Concerns Assessment Noted Time PHQ-9 Depression Total Score: 5 01/12/20 25 9:53 AM EDT documented as of this encounter Care Teams Livestock Trader Relationship Specialty Start Date End Date Latricia Gonzales MD [address] [place] [phone] PCP - General Family Medicine 10/12/24 documented as of this encounter
--- OUTSIDE RECORDS SUMMARY | 2025-03-04 17:41 | XMS_ITS | Encounter Summary ---
Author Organization [employer] Address [address] [place] [address] Care Team Providers Care Geomatics Professor Name Role Phone Latricia Gonzales MD Primary Care Provider [phone] Reason for Visit * Reason Onset Date Comments Nurse Triage 03/03/2025 Encounter Details Date Type Department Care Team ([facility] st Contact Info) Description 03/03/2025 Telephone [facility] MEDICINE [address] [place], [place] [phone] Latricia Gonzales MD [address] [place], [place] [phone] Nurse Triage Social History Tobacco Use Types Packs/Day Years [...] is your housing situation today? I have koyr licona 09/30/[address] you [...] encounter Miscellaneous Notes * Telephone Encounter - Nicolette Lacey RN - 03/03/2025 3:43 PM EDT TC placed to patient [phone] in regards to below message via [employer] (Royce #[id number]) in regards to below message. Patient reports she continues with R shoulder pain (had normal Xray on 01/11/25 which was WNL). Patient reports her R shoulder pain continues. Patient reports pain starts in her neck and radiates down to her shoulder and R arm. Patient reports the pain is worse in the mornings compared to during the day. Patient reports the pain is usually rated between 8-9/10 and reports it has impacted her sleep and work abilities. RN scheduled patient for an appt for tomorrow 03/04/25 at 3pm. Patient to f/u PRN. Protocol Used: Shoulder Pain (Adult) Protocol-Based Disposition: See in Office or Video Visit Today or Tomorrow Video visit not offered Positive Triage Questions: * Patient wants to be seen * Moderate pain (e.g., interferes with normal activities) and present > 3 days * Shoulder pain is a chronic symptom (recurrent or ongoing AND present > 4 weeks) * Shoulder pain * All higher-acuity triage questions were negative Care Advice Discussed: * Reassurance and Education - Shoulder Pain * Pain Medicines * Reasons To Call Back - Chest pain or difficulty breathing occurs - You become worse * Telephone Encounter - Gerardo Gabriel - 03/03/2025 2:57 PM EDT Symptoms: Shoulder Pain - Not From Injury, Headache Outcome: Schedule an urgent appointment (within 4 hours) or talk to a nurse or provider soon Reason: Getting worse Please contact pt at [phone]. (Malian Speaker) documented in this encounter Plan of Treatment Not on file documented as of this encounter Visit Diagnoses Not on filedocumented in this encounter Additional Health Concerns Assessment Noted Time PHQ-9 Depression Total Score: 5 01/12/20 9:53 AM EDT documented as of this encounter Care Teams Geomatics Professor Relationship Specialty Start Date End Date Latricia Gonzales MD [address] [place] [phone] PCP - General Family Medicine 10/12/24 documented as of this encounter
--- OUTSIDE RECORDS SUMMARY | 2025-03-04 17:41 | XMS_ITS | Encounter Summary ---
Author Organization [employer] Address [address] [place] [address] Care Team Providers Care Patient Access Registrar Name Role Phone Latricia Gonzalse MD Primary Care Provider [phone] Encounter Details Date Type Department Care Team ([facility] st Contact Info) Description 12/15/2024 Orders Only [facility] MEDICINE [address] [place], [place] [phone] Latricia Gonzales MD [address] [place], [place] [phone] Iron deficiency anemia secondary to inadequate dietary [...] the past 12 months, has t he [employer], gas, oil or water company threatened to [...] AM EDT) HPV High Risk Negative Negative [facility] HPV Genotype 16 Negative Negative [facility] HPV Genotype 18 Negative Negative [facility] Comment:HPV testing performe d at [facility] (CLIA#[id number]), [address] [place] [phone].Testing for HPV was performed using the [email or web address]. The presence of HPV in the female [...] MD LAB BLOOD ORDERABLES Final Res ult [facility] [address] [place] [phone] * (ABNORMAL) CBC auto differential (12/24/2024 8:20 AM EDT) White Blood Count 5.3 4.8 - 10.8 X10*3/uL [facility] Red Blood Count 4.03(L) 4.20 - 5.50 X10*6/uL [facility] Hemoglobin 7.7(L) 12.0 - 16.0 g/dl [facility] Hematocrit 28.2(L) 37.0 - 47.0 % [facility] Mean Corpuscular Volume 70.0(L) 80.0 - 98.0 fL [facility] Mean Corpuscular Hemoglobin 19.1(L) 27.0 - 33.0 pg [facility] Mean Corpuscular HGB Conc 27.3(L) 31.0 - 35.0 g/dl [facility] Red Cell Distribution Width 19.3(H) 11.0 - 16.0 % [facility] Platelet Count 399 160 - 400 X10*3/uL [facility] Mean Platelet Volume 9.3(L) 9.4 - 12.3 fL [facility] Neutrophils Percent Auto 57.8 45 - 73 % [facility] Imm Gran Pct Auto 0.2 0.0 - 0.4 % [facility] Lymphocytes Percent Auto 31.9 20 - 40 % [facility] Monocytes Percent Auto 7.8 2 - 11 % [facility] Eosinophils Percent Auto 1.7 0 - 4 % [facility] Basophils Percent Auto 0.6 0 - 2 % [facility] NRBC Pct Auto 0.0 0.0 - 0.2 /100WBC [facility] Neutrophils Absolute Auto 3.1 2.0 - 8.3 x10*3/uL [facility] Imm Gran Abs Auto 0.01 0.00 - 0.03 X10*3/uL [facility] Lymphocytes Absolute Auto 1.7 1.2 - 4.9 X10*3/uL [facility] Monocytes Absolute Auto 0.4 0.1 - 1.2 X10*3/uL [facility] Eosinophils Absolute Auto 0.1 0.0 - 0.4 X10*3/uL [facility] Basophils Absolute Auto 0.0 0.0 - 0.2 X10*3/uL [facility] NRBC Abs Auto 0.000 0.0 - 0.012 X10*3/uL [facility] Blood Venous blood specimen / Unknown 12/24/2024 8:20 AM EDT 12/24/2024 11:37 AM EDT us Latricia Gonzales MD LAB BLOOD ORDERABLES Final Res ult [facility] [address] [place] [phone] documented in this encounter Visit Diagnoses Diagnosis Iron deficiency anemia secondary to inadequate dietary iron intake- Primary documented in this encounter Additional Health Concerns Assessment Noted Time PHQ-9 Depression Total Score: 2 10/13/19 25 2:23 PM EDT documented as of this encounter Care Teams Patient Access Registrar Relationship Specialty Start Date End Date Latricia Gonzales MD [address] [place] [phone] PCP - General Family Medicine 10/12/24 documented as of this encounter
== END 2025-03-04 15:12 | disposition home or self-care (01) ==
LOC: HO.HHCL 15:11
PROVIDERS: PCP Nurse Practitioner Family; Visit Provider Nurse Practitioner Family
DX: M54.2 Cervicalgia (principal); D64.9 Anemia, unspecified; M25.511 Pain in right shoulder; M79.641 Pain in right hand
CPT/HCPCS: 36415; 72040; 85025

== ENCOUNTER → 2025-03-04 15:21 | Outpatient (BNV) | payer MEDICAID, SELFPAY | PROVIDERS: PCP Nurse Practitioner Family; Visit Provider Radiology Diagnostic Radiology | DX: M54.12 Radiculopathy, cervical region (principal); M25.511 Pain in right shoulder; M79.601 Pain in right arm; M79.641 Pain in right hand | CPT/HCPCS: 72040 ==